=== PATIENT | male | born 1990 | race American Indian/Alaskan Native ===

== ENCOUNTER 2017-02-26 12:31 | Inpatient (IN) | payer OTHER ==
[2017-02-26] MEDS ORDERED: Pantoprazole 40 MG Vial IVPUSH ONE (13:26)
[2017-02-26] MEDS ORDERED: Sodium Chloride 0.9% 10 ML Syringe FLUSH PRN (13:26)
[2017-02-26] MEDS ORDERED: Sodium Chloride 0.9% 1,000 ML IV ONE (13:26)
[2017-02-26] MEDS ORDERED: Ondansetron 4 MG/2 ML SDV IVPUSH ONE (13:26)
--- NOTE | 2017-02-26 13:31 | EDM.PDOC ---
ED HPI GENERAL MEDICAL PROBLEM - General Chief Complaint: Gastrointestinal Problem Stated Complaint: BLOOD IN STOOL/R LEG PREV BROKEN AND BLEEDING Time Seen by Provider: 02/26/17 13:00 Source of Information: Reports: Patient History Limitations: Reports: No Limitations - History of Present Illness INITIAL COMMENTS - FREE TEXT/NARRATIVE: Patient is a 26-year-old male who presents to the ED complaining of blood in his stool. Patient states approximately 9 o'clock this morning while having a bowel movement he noticed bright red blood within the stool. Again this happened a second time at 11:00. Patient is mildly dizzy while ambulating with crutches to the ED. Patient states he has a history of chronic alcohol use with his last alcohol consumption this morning upon awakening consisting of 2 shots of whiskey. Patient has been through detox multiple times and has never had inpatient therapy. States with detox he has seizures and hallucinations. Normally patient drinks approximately 1/5 whiskey every night. Patient has a history of vomiting blood approximately 2 years ago. He never had additional testing obtained. Pain to lower abdomen described as a cramping sensation, persistent, with no radiation. He is mildly nauseated with no emesis. He also has a history of anxiety, hepatitis C, and hypertension. He does not recall what medications he is on for hypertension. Approximately one month ago patient suffered a serious fracture to his right ankle requiring surgery. Surgery was performed February 07, 2017 at [facility]. He was seen in the clinic yesterday by orthopedic surgeon for reevaluation. They were concerned of increased swelling. Patient had x-ray of the right ankle with no acute findings noted. Cast is still in place. He denies any shortness of breath, chest pain, history of DVT/PE, cough, fever/chills, or any additional complaints. Patient denies any recent bad or questionable food and out of country travel. Right Ankle Pain Score (Numeric/FACES): 6 - Related Data Allergies Allergy/AdvReac Type Severity Reaction Status Date / Time sea food Allergy Airway Uncoded 02/26/17 12:45 Tightness Home Meds: Home Meds Hydrocodone/Acetaminophen [Hydrocodon-Acetaminophen 5-325] 1 tab PO Q6H PRN 10/03 [History] Past Medical History Cardiovascular History: Reports: Hypertension Hematologic History: Reports: Other (See Below) Other Hematologic History: hepatits c - Past Surgical History GI Surgical History: Reports: Cholecystectomy Other Musculoskeletal Surgeries/Procedures:: L wrist surgery after suicide attempt, pt has numerous cut scars to L wrist Social & Family History - Tobacco Use Smoking Status *Q: Never Smoker Second Hand Smoke Exposure: No - Caffeine Use Caffeine Use: Reports: None - Alcohol Use Date of Last Drink: 02/26/17 Time of Last Drink: 06:00 - Recreational Drug Use Recreational Drug Use: No ED ROS GENERAL - Review of Systems Review Of Systems: See Below Constitutional: Reports: Malaise, Decreased Appetite. Denies: Fever, Chills HEENT: Reports: No Symptoms Respiratory: Reports: No Symptoms Cardiovascular: Reports: No Symptoms GI/Abdominal: Reports: Abdominal Pain, Bloody Stool, Diarrhea, Nausea. Denies: Constipation, Hematemesis, Vomiting : Reports: No Symptoms Musculoskeletal: Reports: Leg Pain (right s/p fracture (ankle/lower leg) requiring surgery) Skin: Reports: No Symptoms Neurological: Reports: Dizziness. Denies: Numbness, Tingling, Difficulty Walking (utilize crutches with no issues) ED EXAM, GI/ABD - Physical Exam Exam: See Below Exam Limited By: No Limitations General Appearance: Alert, WD/WN, No Apparent Distress Eyes: Bilateral: EOMI, Nystagmus (horizontal) Ears: Normal External Exam Nose: Normal Inspection Throat/Mouth: Normal Inspection, Normal Oropharynx, Normal Voice, No Airway Compromise Neck: Normal Inspection, Supple, Non-Tender. No: Lymphadenopathy (L), Lymphadenopathy (R) Respiratory/Chest: No Respiratory Distress, Lungs Clear, Normal Breath Sounds, No Accessory Muscle Use, Chest Non-Tender Cardiovascular: Normal Peripheral Pulses, No JVD, No Murmur, Tachycardia GI/Abdominal: Normal Bowel Sounds, Soft, No Organomegaly, No Distention, Other ( mild tenderness in suprapubic region) Back Exam: Normal Inspection Extremities: Other (past to the right lower leg. Toes are pink, warm, with no sensory or motor deficits noted.) Neurological: Alert, Oriented, CN II-XII Intact, Normal Cognition, No Motor/ Sensory Deficits Psychiatric: Normal Affect, Normal Mood Skin Exam: Warm, Dry, Intact, Normal Color, No Rash Course - Vital Signs Last Recorded V/S: Last Vital Signs Temp 98.4 F 02/26/17 20:10 Pulse 127 H 02/26/17 12:41 Resp 20 02/26/17 20:10 BP 136/74 02/26/17 21:07 Pulse Ox 96 02/26/17 20:10 - Orders/Labs/Meds Orders: Active Orders 24 hr Category Date Time Status Peripheral IV Care [RC] Q2H Care 02/26/17 13:27 Active PATIENT RETYPE [BBK] Stat Lab 02/26/17 14:06 Results TYPE AND SCREEN [BBK] Stat Lab 02/26/17 14:06 Results Sodium Chloride 0.9% [Saline Flush] Med 02/26/17 13:26 Active 10 ml FLUSH ASDIRECTED PRN Peripheral IV Insertion Adult [OM.PC] Stat Oth 02/26/17 13:26 Ordered Medication Orders Hydrocodone Bitart/Acetaminophen (Walford 325-5 Mg) 1 tab PO Q6H PRN PRN Reason: Pain Last Admin: 02/26/17 20:59 Dose: 1 tab Chlordiazepoxide HCl (Librium) 25 mg PO TID [facility] Last Admin: 02/26/17 20:59 Dose: 25 mg Clonidine HCl (Catapres) 0.1 mg PO Q12HR [facility] Last Admin: 02/26/17 21:07 Dose: Enoxaparin Sodium (Lovenox) 40 mg SUBCUT DAILY [facility] Hydromorphone HCl (Dilaudid) 1 mg IVPUSH Q6H PRN PRN Reason: Pain (moderate 4-6) Lactated Ringer's (Ringers, Lactated) 1,000 mls @ 150 mls/hr IV ASDIRECTED [facility] Last Admin: 02/26/17 21:18 Dose: 150 mls/hr Lorazepam (Ativan) 1 mg IVPUSH Q6H PRN PRN Reason: Anxiety Last Admin: 02/26/17 21:03 Dose: 1 mg Metoclopramide HCl (Reglan) 10 mg IVPUSH Q6H [facility] Last Admin: 02/26/17 20:58 Dose: 10 mg Ondansetron HCl (Zofran) 4 mg IVPUSH Q8H PRN PRN Reason: Nausea/Vomiting Pantoprazole Sodium (Protonix Iv) 40 mg IVPUSH Q12H [facility] Last Admin: 02/26/17 21:06 Dose: 40 mg Sodium Chloride (Saline Flush) 10 ml FLUSH ASDIRECTED PRN PRN Reason: Keep Vein Open Last Admin: 02/26/17 13:54 Dose: 10 ml Vitamin B Complex/Vit C/Folic Acid (Nephrocaps) 1 tab PO DAILY GISELE Labs: Laboratory Tests 02/26/17 02/26/17 02/26/17 Range/Units 13:45 13:45 14:06 WBC 4.64 (4.23-9.07) K/mm3 RBC 4.87 (4.63-6.08) M/mm3 Hgb 14.7 (13.7-17.5) gm/L Hct 44.3 (40.1-51.0) % MCV 91.0 (79.0-92.2) fl MCH 30.2 (25.7-32.2) pg MCHC 33.2 (32.2-35.5) g/dl RDW Std Deviation 50.1 H (35.1-43.9) fL Plt Count 399 H (163-337) K/mm3 MPV 10.2 (9.4-12.3) fl Neut % (Auto) 35.8 (34.0-67.9) % Lymph % (Auto) 53.9 H (21.8-53.1) % Lasalle % (Auto) 8.8 (5.3-12.2) % Eos % (Auto) 0.2 L (0.8-7.0) Baso % (Auto) 1.1 (0.1-1.2) % Neut # (Auto) 1.66 L (1.78-5.38) K/mm3 Lymph # (Auto) 2.50 (1.32-3.57) K/mm3 [place]alle # (Auto) 0.41 (0.30-0.82) K/mm3 Eos # (Auto) 0.01 L (0.04-0.54) K/mm3 Baso # (Auto) 0.05 (0.01-0.08) K/mm3 PT (8.0-13.0) SECONDS INR D-Dimer, Quantitative (0.19-0.59) mg/L Sodium (136-145) mEq/L Potassium (3.5-5.1) mEq/L Chloride (98-107) mEq/L Carbon Dioxide (21-32) mEq/L Anion Gap (5-15) BUN (7-18) mg/dL Creatinine (0.7-1.3) mg/dL Est Cr Clr Drug Dosing mL/min Estimated GFR (MDRD) (>60) mL/min BUN/Creatinine Ratio (14-18) Glucose (74-106) mg/dL Calcium (8.5-10.1) mg/dL Magnesium (1.8-2.4) mg/dl Total Bilirubin (0.2-1.0) mg/dL AST (15-37) U/L ALT (16-63) U/L Alkaline Phosphatase (46-116) U/L C-Reactive Protein (<1.0) mg/dL Total Protein (6.4-8.2) g/dl Albumin (3.4-5.0) g/dl Globulin gm/dL Albumin/Globulin Ratio (1-2) Lipase (73-393) U/L Urine Color Yellow (Yellow) Urine Appearance Clear (Clear) Urine pH 6.5 (5.0-8.0) Ur Specific Baker 1.010 (1.005-1.030) Urine Protein Trace H (Negative) Urine Glucose (UA) Negative (Negative) Urine Ketones Negative (Negative) Urine Occult Blood Negative (Negative) Urine Nitrite Negative (Negative) Urine Bilirubin Negative (Negative) Urine Urobilinogen 0.2 (0.2-1.0) Ur Leukocyte Esterase Negative (Negative) Urine RBC 0-5 (0-5) /hpf Urine WBC 0-5 (0-5) /hpf Ur Epithelial Cells Not Reportable Ur Squamous Epith Cells 0-5 (0-5) /hpf Urine Bacteria Few (FEW) /hpf Urine Mucus Few (FEW) /hpf Urine Opiates Screen Negative (NEGATIVE) Ur Buprenorphine Scrn Negative (NEGATIVE) Ur Oxycodone Screen Negative (NEGATIVE) Urine Methadone Screen Negative (NEGATIVE) Ur Propoxyphene Screen Negative (NEGATIVE) Ur Barbiturates Screen Negative (NEGATIVE) Ur Tricyclics Screen Negative (NEGATIVE) Ur Phencyclidine Scrn Negative (NEGATIVE) Ur Amphetamine Screen Negative (NEGATIVE) U Methamphetamines Scrn Negative (NEGATIVE) U Benzodiazepines Scrn Negative (NEGATIVE) U Cocaine Metab Screen Negative (NEGATIVE) U Marijuana (THC) Screen Negative (NEGATIVE) Ethyl Alcohol (0.00) gm% Blood Type Gel Antibody Screen 05/12/17 05/12/17 05/12/17 Range/Units 14:06 14:06 14:06 WBC (4.23-9.07) K/mm3 RBC (4.63-6.08) M/mm3 Hgb (13.7-17.5) gm/L Hct (40.1-51.0) % MCV (79.0-92.2) fl MCH (25.7-32.2) pg MCHC (32.2-35.5) g/dl RDW Std Deviation (35.1-43.9) fL Plt Count (163-337) K/mm3 MPV (9.4-12.3) fl Neut % (Auto) (34.0-67.9) % Lymph % (Auto) (21.8-53.1) % Lasalle % (Auto) (5.3-12.2) % Eos % (Auto) (0.8-7.0) Baso % (Auto) (0.1-1.2) % Neut # (Auto) (1.78-5.38) K/mm3 Lymph # (Auto) (1.32-3.57) K/mm3 Lasalle # (Auto) (0.30-0.82) K/mm3 Eos # (Auto) (0.04-0.54) K/mm3 Baso # (Auto) (0.01-0.08) K/mm3 PT 10.7 (8.0-13.0) SECONDS INR 0.98 D-Dimer, Quantitative (0.19-0.59) mg/L Sodium 148 H (136-145) mEq/L Potassium 3.6 (3.5-5.1) mEq/L Chloride 110 H (98-107) mEq/L Carbon Dioxide 23 (21-32) mEq/L Anion Gap 18.6 H (5-15) BUN 5 L (7-18) mg/dL Creatinine 1.1 (0.7-1.3) mg/dL Est Cr Clr Drug Dosing 120.39 mL/min Estimated GFR (MDRD) > 60 (>60) mL/min BUN/Creatinine Ratio 4.5 L (14-18) Glucose 139 H (74-106) mg/dL Calcium 8.4 L (8.5-10.1) mg/dL Magnesium (1.8-2.4) mg/dl Total Bilirubin 0.4 (0.2-1.0) mg/dL AST 244 H (15-37) U/L ALT 278 H (16-63) U/L Alkaline Phosphatase 136 H (46-116) U/L C-Reactive Protein < 0.2 (<1.0) mg/dL Total Protein 7.6 (6.4-8.2) g/dl Albumin 3.7 (3.4-5.0) g/dl Globulin 3.9 gm/dL Albumin/Globulin Ratio 1.0 (1-2) Lipase 88 (73-393) U/L Urine Color (Yellow) Urine Appearance (Clear) Urine pH (5.0-8.0) Ur Specific Baker (1.005-1.030) Urine Protein (Negative) Urine Glucose (UA) (Negative) Urine Ketones (Negative) Urine Occult Blood (Negative) Urine Nitrite (Negative) Urine Bilirubin (Negative) Urine Urobilinogen (0.2-1.0) Ur Leukocyte Esterase (Negative) Urine RBC (0-5) /hpf Urine WBC (0-5) /hpf Ur Epithelial Cells Ur Squamous Epith Cells (0-5) /hpf Urine Bacteria (FEW) /hpf Urine Mucus (FEW) /hpf Urine Opiates Screen (NEGATIVE) Ur Buprenorphine Scrn (NEGATIVE) Ur Oxycodone Screen (NEGATIVE) Urine Methadone Screen (NEGATIVE) Ur Propoxyphene Screen (NEGATIVE) Ur Barbiturates Screen (NEGATIVE) Ur Tricyclics Screen (NEGATIVE) Ur Phencyclidine Scrn (NEGATIVE) Ur Amphetamine Screen (NEGATIVE) U Methamphetamines Scrn (NEGATIVE) U Benzodiazepines Scrn (NEGATIVE) U Cocaine Metab Screen (NEGATIVE) U Marijuana (THC) Screen (NEGATIVE) Ethyl Alcohol (0.00) gm% Blood Type A POSITIVE Gel Antibody Screen Negative 02/26/17 02/26/17 02/26/17 Range/Units 14:06 14:06 14:06 WBC (4.23-9.07) K/mm3 RBC (4.63-6.08) M/mm3 Hgb (13.7-17.5) gm/L Hct (40.1-51.0) % MCV (79.0-92.2) fl MCH (25.7-32.2) pg MCHC (32.2-35.5) g/dl RDW Std Deviation (35.1-43.9) fL Plt Count (163-337) K/mm3 MPV (9.4-12.3) fl Neut % (Auto) (34.0-67.9) % Lymph % (Auto) (21.8-53.1) % Lasalle % (Auto) (5.3-12.2) % Eos % (Auto) (0.8-7.0) Baso % (Auto) (0.1-1.2) % Neut # (Auto) (1.78-5.38) K/mm3 Lymph # (Auto) (1.32-3.57) K/mm3 [place]alle # (Auto) (0.30-0.82) K/mm3 Eos # (Auto) (0.04-0.54) K/mm3 Baso # (Auto) (0.01-0.08) K/mm3 PT (8.0-13.0) SECONDS INR D-Dimer, Quantitative 2.66 H (0.19-0.59) mg/L Sodium (136-145) mEq/L Potassium (3.5-5.1) mEq/L Chloride (98-107) mEq/L Carbon Dioxide (21-32) mEq/L Anion Gap (5-15) BUN (7-18) mg/dL Creatinine (0.7-1.3) mg/dL Est Cr Clr Drug Dosing mL/min Estimated GFR (MDRD) (>60) mL/min BUN/Creatinine Ratio (14-18) Glucose (74-106) mg/dL Calcium (8.5-10.1) mg/dL Magnesium 1.9 (1.8-2.4) mg/dl Total Bilirubin (0.2-1.0) mg/dL AST (15-37) U/L ALT (16-63) U/L Alkaline Phosphatase (46-116) U/L C-Reactive Protein (<1.0) mg/dL Total Protein (6.4-8.2) g/dl Albumin (3.4-5.0) g/dl Globulin gm/dL Albumin/Globulin Ratio (1-2) Lipase (73-393) U/L Urine Color (Yellow) Urine Appearance (Clear) Urine pH (5.0-8.0) Ur Specific Baker (1.005-1.030) Urine Protein (Negative) Urine Glucose (UA) (Negative) Urine Ketones (Negative) Urine Occult Blood (Negative) Urine Nitrite (Negative) Urine Bilirubin (Negative) Urine Urobilinogen (0.2-1.0) Ur Leukocyte Esterase (Negative) Urine RBC (0-5) /hpf Urine WBC (0-5) /hpf Ur Epithelial Cells Ur Squamous Epith Cells (0-5) /hpf Urine Bacteria (FEW) /hpf Urine Mucus (FEW) /hpf Urine Opiates Screen (NEGATIVE) Ur Buprenorphine Scrn (NEGATIVE) Ur Oxycodone Screen (NEGATIVE) Urine Methadone Screen (NEGATIVE) Ur Propoxyphene Screen (NEGATIVE) Ur Barbiturates Screen (NEGATIVE) Ur Tricyclics Screen (NEGATIVE) Ur Phencyclidine Scrn (NEGATIVE) Ur Amphetamine Screen (NEGATIVE) U Methamphetamines Scrn (NEGATIVE) U Benzodiazepines Scrn (NEGATIVE) U Cocaine Metab Screen (NEGATIVE) U Marijuana (THC) Screen (NEGATIVE) Ethyl Alcohol 0.32 (0.00) gm% Blood Type Gel Antibody Screen Meds: Medications Generic Name Dose Route Start Last Admin Trade Name Freq PRN Reason Stop Dose Admin Hydrocodone Bitart/Acetaminophen 1 tab 02/26/17 20:43 02/26/17 20:59 Walford 325-5 Mg PO 1 tab Q6H PRN Administration Pain Chlordiazepoxide HCl 25 mg 02/26/17 21:00 02/26/17 20:59 Librium PO 25 mg TID GISELE Administration Clonidine HCl 0.1 mg 02/26/17 21:00 02/26/17 21:07 Catapres PO Not Given Q12HR [facility] Enoxaparin Sodium 40 mg 02/27/17 09:00 Lovenox SUBCUT DAILY GISELE Hydromorphone HCl 1 mg 02/26/17 20:44 Dilaudid IVPUSH Q6H PRN Pain (moderate 4-6) Lactated Ringer's 1,000 mls @ 150 mls/hr 02/26/17 20:30 02/26/17 21:18 Ringers, Lactated IV 150 mls/hr ASDIRECTED GISELE Administration Lorazepam 1 mg 02/26/17 20:28 02/26/17 21:03 Ativan IVPUSH 1 mg Q6H PRN Administration Anxiety Metoclopramide HCl 10 mg 02/26/17 21:00 02/26/17 20:58 Reglan IVPUSH 10 mg Q6H GISELE Administration Ondansetron HCl 4 mg 02/26/17 20:35 Zofran IVPUSH Q8H PRN Nausea/Vomiting Pantoprazole Sodium 40 mg 02/26/17 21:00 02/26/17 21:06 Protonix Iv IVPUSH 40 mg Q12H GISELE Administration Sodium Chloride 10 ml 02/26/17 13:26 02/26/17 13:54 Saline Flush FLUSH 10 ml ASDIRECTED PRN Administration Keep Vein Open Vitamin B Complex/Vit C/Folic Acid 1 tab 02/27/17 09:00 Nephrocaps PO DAILY GISELE Discontinued Medications Generic Name Dose Route Start Last Admin Trade Name Freq PRN Reason Stop Dose Admin Chlordiazepoxide HCl 25 mg 02/26/17 17:54 02/26/17 18:51 Librium PO 02/26/17 17:55 25 mg ONETIME ONE Administration Diatrizoate Meglum/Diatrizoate Sod 90 ml 02/26/17 14:48 02/26/17 15:04 Gastrografin 37% PO 02/26/17 14:49 90 ml ONETIME ONE Administration Sodium Chloride 1,000 mls @ 999 mls/hr 02/26/17 13:26 02/26/17 13:53 Normal Saline IV 02/26/17 14:26 999 mls/hr ONETIME ONE Administration Sodium Chloride 100 mls @ 60 mls/hr 02/26/17 15:00 02/26/17 15:04 Normal Saline IV 60 mls/hr ASDIRECTED GISELE Administration Sodium Chloride 2,000 mls @ 999 mls/hr 02/26/17 17:54 02/26/17 18:49 Normal Saline IV 02/26/17 19:54 999 mls/hr ONETIME ONE Administration Magnesium Sulfate 2 gm/ Premix 50 mls @ 25 mls/hr 02/26/17 20:33 02/26/17 21: 15 IV 02/26/17 22:32 25 mls/hr ONETIME ONE Administration Iopamidol 100 ml 02/26/17 14:48 02/26/17 15:04 Isovue-370 (76%) IVPUSH 02/26/17 14:49 100 ml ONETIME ONE Administration Iopamidol 50 ml 02/26/17 14:48 02/26/17 15:04 Isovue-370 (76%) IVPUSH 02/26/17 14:49 50 ml ONETIME ONE Administration Lorazepam 0.5 mg 02/26/17 14:00 02/26/17 15:18 Ativan IVPUSH 02/26/17 14:01 Not Given ONETIME ONE Lorazepam 1 mg 02/26/17 14:00 02/26/17 14:19 Ativan IVPUSH 02/26/17 14:01 1 mg ONETIME ONE Administration Lorazepam 1 mg 02/26/17 17:02 02/26/17 17:13 Ativan IVPUSH 02/26/17 17:03 1 mg ONETIME ONE Administration Metronidazole 500 mg 02/26/17 18:35 02/26/17 18:51 Flagyl PO 02/26/17 18:36 500 mg ONETIME ONE Administration Ondansetron HCl 4 mg 02/26/17 13:26 02/26/17 13:54 Zofran IVPUSH 02/26/17 13:27 4 mg ONETIME ONE Administration Pantoprazole Sodium 40 mg 02/26/17 13:26 02/26/17 13:53 Protonix Iv IVPUSH 02/26/17 13:27 40 mg ONETIME ONE Administration Propranolol HCl 80 mg 02/26/17 17:54 02/26/17 19:00 Inderal La PO 02/26/17 17:55 80 mg ONETIME ONE Administration Sodium Chloride 10 ml 02/26/17 14:48 02/26/17 15:04 Saline Flush FLUSH 02/26/17 14:49 10 ml ONETIME ONE Administration - Re-Assessments/Exams Free Text/Narrative Re-Assessment/Exam: Order peripheral IV with normal saline and a 9 mL per hour, Zofran 4 mg IVP, protonic 40 mg IVP. Initial labs and studies include: CBC, ETOH, chem 14, CRP, lipase, PT/INR, urine drug test, UA, EKG, type and screen, d-dimer, and CT abdomen/pelvis with oral and IV contrast. 1338 Patient has allergy to seafood. Discussing pretreatment with solumedrol and benadryl prior to contrast. Dr. Rodriguez states that is unproven and no pretreatment is required. Thus will proceed with no treatment per Dr. Rodriguez' s recommendations. 1350 EKG: Sinus tachycardia rate of 123, GA 140, QTc 472. No acute ST changes. S1Q3T3 present concerning for PE with recent lower leg ortho surgery and persistent swelling. Patient has no CP or SOB noted but is lightheaded. 02/26/17 14:01patient complains being anxious. Ordered Ativan 1 mg IVP. 02/26/17 14:47 d-dimer elevated at 2.26. Ordered CTA of the chest to rule out PE in addition to CT abdomen and pelvis. 02/26/17 17:00 CT angiogram impression: No findings of pulmonary embolism. CT abdomen pelvis: Impression questionable wall thickening within the right colon. Some of this may relate to lack of distention but difficult to exclude mild colitis. Other incidental findings. No acute is otherwise seen on CT study of the abdomen and pelvis. ordered venous duplex of the right lower extremity to evaluate for DVT. Patient has persistent swelling after surgery February 07, 2017. 02/26/17 17:03 Patient requesting more ativan. 1 mg IVP ordered. 02/26/17 17:55 Ordered Librium 25 mg p.o., Indural long-acting 80 mg p.o., and normal saline 2000 mL's (999 mls/hr). 02/26/17 18:38 Ordered flagyl 500mg PO. ultrasound impression: Slightly limited study due to the catheter due to the cast. No findings of deep venous thrombosis seen within the lower right lower extremity or within the left common femoral vein. Unclear etiology of elevated d-dimer. He has no swelling or pain to his left lower extremity. 1900 Reassessment, BP stable remains tachycardic. Patient requests to be admitted for detox and further management of mild colitis. He has had no BM's while in the E.D. 02/26/17 19:[address] Jordan environmental services coordinator hospitalists. She will see the patient in the E.D. 02/26/17 19:34 Dr. Jordan has accepted the patient. Requests patient be placed in ICU. Admissions orders completed. I have also ordered magnesium serum level. Departure - Departure Time of Disposition: 19:35 Disposition: Admitted As Inpatient 68 Condition: fair Clinical Impression: Alcohol abuse, Colitis, Tachycardia - Discharge Information - My Orders Last 24 Hours: My Active Orders 02/26/17 13:26 Sodium Chloride 0.9% [Saline Flush] 10 ml FLUSH ASDIRECTED PRN Peripheral IV Insertion Adult [OM.PC] Stat 02/26/17 13:27 Peripheral IV Care [RC] Q2H 02/26/17 14:06 PATIENT RETYPE [BBK] Stat TYPE AND SCREEN [BBK] Stat - Assessment/Plan Last 24 Hours: My Active Orders 02/26/17 13:26 Sodium Chloride 0.9% [Saline Flush] 10 ml FLUSH ASDIRECTED PRN Peripheral IV Insertion Adult [OM.PC] Stat 02/26/17 13:27 Peripheral IV Care [RC] Q2H 02/26/17 14:06 PATIENT RETYPE [BBK] Stat TYPE AND SCREEN [BBK] Stat
[2017-02-26] MEDS ORDERED: LORazepam 2 MG/ML MDV IVPUSH ONE ×3 (14:00→17:02)
[2017-02-26] MEDS ORDERED: Sodium Chloride 0.9% 10 ML Syringe FLUSH ONE (14:48)
[2017-02-26] MEDS ORDERED: Diatrizoate Meglumine/Diatrizoate Sodium 37% 120 ML Bottle PO ONE (14:48)
[2017-02-26] MEDS ORDERED: Iopamidol 755 Mg/ML 100 ML Bottle IVPUSH ONE (14:48)
[2017-02-26] MEDS ORDERED: Iopamidol 755 MG/ML 50 ML Bottle IVPUSH ONE (14:48)
[2017-02-26] MEDS ORDERED: Sodium Chloride 0.9% 100 ML IV SCH (15:00)
--- NOTE | 2017-02-26 15:38 | CT ---
CT abdomen and pelvis Technique: Multiple axial sections were obtained from above the dome of the diaphragm inferiorly through the pubic symphysis. Intravenous and oral contrast was utilized. Delayed images were also obtained through the bladder. Findings: Liver shows mild fatty infiltration. No focal abnormality is seen within the liver other than incidental fatty change near the ligamentum teres fissure. Spleen appears within normal limits. Adrenal glands show no nodule. Pancreas is within normal limits. Kidneys show symmetric contrast enhancement without hydronephrosis or mass. Gallbladder not seen compatible with previous cholecystectomy surgical clips being seen within the gallbladder bed. Aorta shows no aneurysmal dilatation. No retroperitoneal adenopathy or mesenteric abnormalities are seen. No pelvic mass or adenopathy is seen. Delayed images shows contrast within the distal ureters and within the bladder. Questionable wall wall thickening is seen within the right colon. Other portions of the colon appear within normal limits. No inflammatory change or free fluid is seen. Bone window settings were reviewed which appears within normal limits for the patient's age. Impression: 1. Questionable wall thickening within the right colon. Some of this may relate to lack of distention but difficult to exclude mild colitis. Please correlate with the patient's symptoms. 2. Other incidental findings. Nothing acute is otherwise seen on CT study of the abdomen and pelvis. Diagnostic code #3
--- NOTE | 2017-02-26 15:46 | CT ---
CT chest Technique: Multiple axial sections through the chest were obtained. Intravenous contrast was utilized. Study has been performed as a pulmonary angiogram protocol. Comparison: No previous chest CT, previous chest x-ray of 04/02/15. Findings: Pulmonary arteries are well-opacified. No filling defects are seen to indicate pulmonary embolism. Mediastinum and hilar regions appear within normal limits. No axillary adenopathy is seen. No pericardial thickening is seen. Heart size is normal. Small portion of the visualized upper abdominal structures shows low density near the ligamentum teres fissure within the liver which is felt compatible with incidental fat. Lungs shows minimal dependent atelectasis posteriorly. Lungs otherwise are clear. No pleural effusions or pneumothorax is seen. Bone window settings were reviewed which appear within normal limits for the patient's age. Impression: 1. No findings of pulmonary embolism. 2. Other portions of the CT study of the chest performed as a pulmonary angiogram protocol appear unremarkable. Diagnostic code #1
[2017-02-26] MEDS ORDERED: Sodium Chloride 0.9% 2,000 ML IV ONE (17:54)
[2017-02-26] MEDS ORDERED: Propranolol 80 MG Cap.ER PO ONE (17:54)
[2017-02-26] MEDS ORDERED: chlordiazePOXIDE 25 MG Cap PO ONE (17:54)
--- NOTE | 2017-02-26 18:29 | US ---
Right lower extremity deep venous ultrasound: Duplex and color flow imaging was obtained of the right common femoral, proximal greater saphenous, superficial femoral, popliteal, posterior tibial and peroneal veins. Cast is noted within the lower extremity. This causes limited augmentation and calf veins. Normal phasic flow, augmentation and compression is otherwise seen. Left common femoral vein is also patent. Impression: 1. Slightly limited study due to the calf due to cast. No findings of deep venous thrombosis is seen within the right lower extremity or within the left common femoral vein. Diagnostic code #1
[2017-02-26] MEDS ORDERED: metroNIDAZOLE 500 MG Tab PO ONE (18:35)
--- NOTE | 2017-02-26 20:21 | PCM.HP ---
H&P History of Present Illness - General Date of Service: 02/26/17 Admit Problem/Dx: Admission Diagnosis/Problem Admission Diagnosis/Problem Non-specific colitis Source of Information: Patient, Family, Provider History Limitations: Reports: No Limitations - History of Present Illness Initial Comments - Free Text/Narative: 26 year old PMH of substance abuse includes heavy alcohol ingestion. He reports blood while passing a stool twice. This was associated with nausea, no vomiting. Carmpy abdominal pain was also reported. He drinks up to a fifth of alcohol daily. ED staff stated that he wishes to undergo treatment, however the patient believes that he is being admitted for blood in his stool. The patient reported a history of alcohol related seizures, DTs/hallucinations and more than one attempt to stop alcohol and drug abuse. Recently he required surgical repair of a right ankle fracture. He has been prescribed Conesus 5-325 for pain. Onset of Symptoms: Reports: Sudden Symptom Onset Date: 02/26/17 Duration of Symptoms: Reports: Hour(s):, Getting Worse Location: Reports: Abdomen Severity: Moderate Improves with: Reports: None Worsens with: Reports: None Associated Symptoms: Reports: Nausea/Vomiting, Weakness Right Ankle Pain Score (Numeric/FACES): 6 - Related Data Allergies/Adverse Reactions: Allergies Allergy/AdvReac Type Severity Reaction Status Date / Time sea food Allergy Airway Uncoded 02/26/17 23:11 Tightness Home Medications: Home Meds Hydrocodone/Acetaminophen [Hydrocodon-Acetaminophen 5-325] 1 tab PO Q6H PRN 10/03 [History] Past Medical History Cardiovascular History: Reports: Hypertension Hematologic History: Reports: Other (See Below) Other Hematologic History: hepatits c - Past Surgical History GI Surgical History: Reports: Cholecystectomy Other Musculoskeletal Surgeries/Procedures:: L wrist surgery after suicide attempt, pt has numerous cut scars to L wrist Social & Family History - Tobacco Use Smoking Status *Q: Never Smoker Second Hand Smoke Exposure: No - Caffeine Use Caffeine Use: Reports: None - Alcohol Use Date of Last Drink: 02/26/17 Time of Last Drink: 06:00 - Recreational Drug Use Recreational Drug Use: No H&P Review of Systems - Review of Systems: Review Of Systems: See Below General: Reports: Malaise, Weakness HEENT: Reports: No Symptoms Pulmonary: Reports: No Symptoms Cardiovascular: Reports: No Symptoms Gastrointestinal: Reports: Abdominal Pain, Bloody Stool Genitourinary: Reports: No Symptoms Musculoskeletal: Reports: Leg Pain (right) Skin: Reports: No Symptoms Psychiatric: Reports: Anxiety Neurological: Reports: No Symptoms Hematologic/Lymphatic: Reports: No Symptoms Immunologic: Reports: No Symptoms Exam - Exam Exam: See Below - Vital Signs Vital Signs: Last Vital Signs Temp 36.9 C 02/26/17 12:41 Pulse 127 H 02/26/17 12:41 Resp 18 02/26/17 12:41 BP 155/92 H 02/26/17 12:41 Pulse Ox 97 02/26/17 12:41 Weight: 131.088 kg - Exam General: Alert, Oriented, Cooperative HEENT: EOMI, Nares Patent, Normal Nasal Septum, Pupils Equal, Pupils Reactive Neck: Supple, Trachea Midline Lungs: Normal Respiratory Effort Cardiovascular: Regular Rate, Tachycardia Abdomen: Normal Bowel Sounds, Soft (Male) Exam: Deferred Rectal (Males) Exam: Deferred Back Exam: Normal Inspection Extremities: Normal Pulses Skin: Warm, Other (multiple tattoos, scars) Neurological: Cranial Nerves Intact, Normal Speech Neuro Extensive - Mental Status: Alert, Oriented x3 Neuro Extensive - Motor, Sensory, Reflexes: CN II-XII Intact Psychiatric: Alert, Anxious - Patient Data Lab Results last 24 hrs: Laboratory Results - last 24 hr 02/26/17 Range/Units 20:00 Magnesium 1.5 L (1.8-2.4) mg/dl Result Diagrams: 02/27/17 04:16 02/27/17 04:16 *Q Meaningful Use (ADM) - VTE *Q VTE Criteria *Q: - Stroke *Q Stroke Criteria *Q: - AMI *Q AMI Criteria *Q: Problem List Initiated/Reviewed/Updated: Yes Orders Last 24hrs: Active Orders 24 hr Category Date Time Status Antiembolic Devices [RC] PER UNIT ROUTINE Care 02/26/17 20:18 Ordered Bedrest Bathroom Privileges [RC] ASDIRECTED Care 02/26/17 20:17 Ordered CIWAA Assessment [RC] ASDIRECTED Care 02/26/17 20:17 Ordered Vital Signs [RC] PER UNIT ROUTINE Care 02/26/17 20:17 Ordered BMP [BASIC METABOLIC PANEL,BMP] [CHEM] DAILY Lab 02/27/17 05:00 Ordered BMP [BASIC METABOLIC PANEL,BMP] [CHEM] DAILY Lab 02/28/17 05:00 Ordered BMP [BASIC METABOLIC PANEL,BMP] [CHEM] DAILY Lab 03/01/17 05:00 Ordered BMP [BASIC METABOLIC PANEL,BMP] [CHEM] DAILY Lab 03/02/17 05:00 Ordered CBC W/O DIFF,HEMOGRAM [HEME] MOTH@0700 Lab 03/01/17 07:00 Ordered CBC W/O DIFF,HEMOGRAM [HEME] MOTH@0700 Lab 03/04/17 07:00 Ordered CBC W/O DIFF,HEMOGRAM [HEME] MOTH@0700 Lab 03/08/17 07:00 Ordered CBC W/O DIFF,HEMOGRAM [HEME] MOTH@0700 Lab 03/11/17 07:00 Ordered CBC W/O DIFF,HEMOGRAM [HEME] MOTH@0700 Lab 03/15/17 07:00 Ordered CBC W/O DIFF,HEMOGRAM [HEME] MOTH@0700 Lab 03/18/17 07:00 Ordered CBC WITH AUTO DIFF [HEME] DAILY Lab 02/27/17 05:00 Ordered CBC WITH AUTO DIFF [HEME] DAILY Lab 02/28/17 05:00 Ordered CBC WITH AUTO DIFF [HEME] DAILY Lab 03/01/17 05:00 Ordered CBC WITH AUTO DIFF [HEME] DAILY Lab 03/02/17 05:00 Ordered CRP [C-REACTIVE PROTEIN] [CHEM] DAILY Lab 02/27/17 05:00 Ordered CRP [C-REACTIVE PROTEIN] [CHEM] DAILY Lab 02/28/17 05:00 Ordered CRP [C-REACTIVE PROTEIN] [CHEM] DAILY Lab 03/01/17 05:00 Ordered CRP [C-REACTIVE PROTEIN] [CHEM] DAILY Lab 03/02/17 05:00 Ordered Enoxaparin [Lovenox] Med 02/27/17 09:00 Ordered 40 mg SUBCUT DAILY Lactated Ringers @ 150 MLS/HR(1000ml Bag) Med 02/26/17 20:30 Ordered Lactated Ringers [Ringers, Lactated] 1,000 ml IV ASDIRECTED Pantoprazole [ProTONIX IV] Med 02/26/17 20:30 Ordered 40 mg IVPUSH Q12H KASSI Hose [Antiembolic Hose] [OM.PC] Routine Oth 02/26/17 20:18 Ordered Code Status [Resuscitation Status] Routine Resus Stat 02/26/17 20:18 Ordered Medication Orders Sodium Chloride (Normal Saline) 100 mls @ 60 mls/hr IV ASDIRECTED GISELE Last Admin: 02/26/17 15:04 Dose: 60 mls/hr Sodium Chloride (Saline Flush) 10 ml FLUSH ASDIRECTED PRN PRN Reason: Keep Vein Open Last Admin: 02/26/17 13:54 Dose: 10 ml Assessment/Plan Comment:: Impression: Painless bloody stool History of HCV Polysubstance abuse History of self mutilation, required surgical repair of wrist from attempted suicide Reported wants ETOH/Substance abuse consult but denied it in the ED Plan: IVF CIWA protocol Replace electrolytes SZ/Aspiration precautions Psych consult Substance abuse consult General surgery consult re: BPR if it persist, vern hemorrhoids query outpatient consult DVT/GI prophylaxis
[2017-02-26] MEDS ORDERED: Magnesium Sulfate/Water 2 GM in Premix Bag 1 BAG IV ONE (20:33)
[2017-02-26] MEDS ORDERED: Ondansetron 4 MG/2 ML SDV IVPUSH PRN (20:35)
[2017-02-26] MEDS ORDERED: Acetaminophen/HYDROcodone 325-5 MG Tab PO PRN (20:43)
[2017-02-26] MEDS ORDERED: HYDROmorphone 1 MG/ML Syringe IVPUSH PRN (20:44)
[2017-02-26] MEDS: Metoclopramide 10 MG/2 ML SDV IVPUSH SCH (20:58)
[2017-02-26] MEDS: chlordiazePOXIDE 25 MG Cap PO SCH (20:59)
[2017-02-26] MEDS: LORazepam 2 MG/ML MDV IVPUSH PRN (21:03)
[2017-02-26] MEDS: Pantoprazole 40 MG Vial IVPUSH SCH (21:06)
[2017-02-26] MEDS: cloNIDine 0.1 MG Tab PO SCH (21:07)
[2017-02-26] MEDS: Lactated Ringers 1,000 ML IV SCH (21:18)
[2017-02-27] MEDS: Metoclopramide 10 MG/2 ML SDV IVPUSH SCH ×2 (03:02→09:34)
[2017-02-27] MEDS: LORazepam 2 MG/ML MDV IVPUSH PRN (03:14)
[2017-02-27] MEDS: Lactated Ringers 1,000 ML IV SCH ×2 (04:04→10:50)
[2017-02-27] MEDS ORDERED: Sodium Chloride 0.9% 10 ML Syringe FLUSH PRN (08:07)
[2017-02-27] MEDS: cloNIDine 0.1 MG Tab PO SCH (08:29)
[2017-02-27] MEDS ORDERED: Biotin/Folic Acid/Vitamin C/Vitamin B Complex Tab PO SCH (09:00)
[2017-02-27] MEDS ORDERED: Enoxaparin 40 MG/0.4 ML Syringe SUBCUT SCH (09:00)
[2017-02-27] MEDS: chlordiazePOXIDE 25 MG Cap PO SCH (09:34)
[2017-02-27] MEDS: Pantoprazole 40 MG Vial IVPUSH SCH (09:34)
[2017-02-27] MEDS ORDERED: Magnesium Sulfate/Water 2 GM in Premix Bag 1 BAG IV ONE (11:07)
[2017-02-27] MEDS ORDERED: Potassium Chloride 10% 20 MEQ/15 ML Soln 30 ML UD Cup PO ONE (11:08)
[2017-02-27 12:19] VITALS: BP 141/78
--- NOTE | 2017-02-27 12:21 | PCM.PN ---
- General Info Date of Service: 02/27/17 - Patient Data Vitals - most recent: Last Vital Signs Temp 36.3 C 02/27/17 12:00 Pulse 74 02/27/17 12:00 Resp 18 02/27/17 12:00 BP 141/78 H 02/27/17 12:00 Pulse Ox 98 02/27/17 12:00 Weight - most recent: 131.088 kg I&O - last 24 hours: Intake & Output 02/26/17 02/27/17 02/27/17 22:59 06:59 14:59 Intake Total 300 2450 1000 Output Total 400 350 500 Balance -100 2100 500 Lab Results last 24 hrs: Laboratory Results - last 24 hr 02/26/17 02/27/17 02/27/17 Range/Units 20:00 04:16 04:16 WBC 5.08 (4.23-9.07) K/mm3 RBC 4.24 L (4.63-6.08) M/mm3 Hgb 12.7 L (13.7-17.5) gm/L Hct 39.4 L (40.1-51.0) % MCV 92.9 H (79.0-92.2) fl MCH 30.0 (25.7-32.2) pg MCHC 32.2 (32.2-35.5) g/dl RDW Std Deviation 50.8 H (35.1-43.9) fL Plt Count 309 (163-337) K/mm3 MPV 10.7 (9.4-12.3) fl Neut % (Auto) 45.4 (34.0-67.9) % Lymph % (Auto) 44.7 (21.8-53.1) % [place] % (Auto) 8.1 (5.3-12.2) % Eos % (Auto) 1.2 (0.8-7.0) Baso % (Auto) 0.6 (0.1-1.2) % Neut # (Auto) 2.31 (1.78-5.38) K/mm3 Lymph # (Auto) 2.27 (1.32-3.57) K/mm3 [place] # (Auto) 0.41 (0.30-0.82) K/mm3 Eos # (Auto) 0.06 (0.04-0.54) K/mm3 Baso # (Auto) 0.03 (0.01-0.08) K/mm3 Sodium 143 (136-145) mEq/L Potassium 3.4 L (3.5-5.1) mEq/L Chloride 108 H (98-107) mEq/L Carbon Dioxide 24 (21-32) mEq/L Anion Gap 14.4 (5-15) BUN 5 L (7-18) mg/dL Creatinine 1.2 (0.7-1.3) mg/dL Est Cr Clr Drug Dosing 110.36 mL/min Estimated GFR (MDRD) > 60 (>60) mL/min BUN/Creatinine Ratio 4.2 L (14-18) Glucose 95 (74-106) mg/dL Calcium 8.1 L (8.5-10.1) mg/dL Magnesium 1.5 L 1.8 (1.8-2.4) mg/dl C-Reactive Protein < 0.2 (<1.0) mg/dL Med Orders - Current: Current Medications Hydrocodone Bitart/Acetaminophen ([place] 325-5 Mg) 1 tab PO Q6H PRN PRN Reason: Pain Last Admin: 02/26/17 20:59 Dose: 1 tab Chlordiazepoxide HCl (Librium) 25 mg PO TID [facility] Last Admin: 02/27/17 09:34 Dose: 25 mg Clonidine HCl (Catapres) 0.1 mg PO Q12HR [facility] Last Admin: 02/27/17 08:29 Dose: Not Given Enoxaparin Sodium (Lovenox) 40 mg SUBCUT DAILY [facility] Last Admin: 02/27/17 08:29 Dose: Not Given Fluoxetine HCl (Prozac) 20 mg PO DAILY [facility] Hydromorphone HCl (Dilaudid) 1 mg IVPUSH Q6H PRN PRN Reason: Pain (moderate 4-6) Lactated Ringer's (Ringers, Lactated) 1,000 mls @ 150 mls/hr IV ASDIRECTED [facility] Last Admin: 02/27/17 10:50 Dose: 150 mls/hr Magnesium Sulfate 2 gm/ Premix 50 mls @ 25 mls/hr IV ONETIME ONE Stop: 02/27/17 13:06 Lorazepam (Ativan) 1 mg IVPUSH Q6H PRN PRN Reason: Anxiety Last Admin: 02/27/17 03:14 Dose: 1 mg Metoclopramide HCl (Reglan) 10 mg IVPUSH Q6H [facility] Last Admin: 02/27/17 09:34 Dose: 10 mg Ondansetron HCl (Zofran) 4 mg IVPUSH Q8H PRN PRN Reason: Nausea/Vomiting Pantoprazole Sodium (Protonix Iv) 40 mg IVPUSH Q12H [facility] Last Admin: 02/27/17 09:34 Dose: 40 mg Sodium Chloride (Saline Flush) 10 ml FLUSH ASDIRECTED PRN PRN Reason: Keep Vein Open Vitamin B Complex/Vit C/Folic Acid (Nephrocaps) 1 tab PO DAILY [facility] Last Admin: 02/27/17 09:35 Dose: 1 tab Discontinued Medications Chlordiazepoxide HCl (Librium) 25 mg PO ONETIME ONE Stop: 02/26/17 17:55 Last Admin: 02/26/17 18:51 Dose: 25 mg Diatrizoate Meglum/Diatrizoate Sod (Gastrografin 37%) 90 ml PO ONETIME ONE Stop: 02/26/17 14:49 Last Admin: 02/26/17 15:04 Dose: 90 ml Sodium Chloride (Normal Saline) 1,000 mls @ 999 mls/hr IV ONETIME ONE Stop: 02/26/17 14:26 Last Admin: 02/26/17 13:53 Dose: 999 mls/hr Sodium Chloride (Normal Saline) 100 mls @ 60 mls/hr IV ASDIRECTED [facility] Last Admin: 02/26/17 15:04 Dose: 60 mls/hr Sodium Chloride (Normal Saline) 2,000 mls @ 999 mls/hr IV ONETIME ONE Stop: 02/26/17 19:54 Last Admin: 02/26/17 18:49 Dose: 999 mls/hr Magnesium Sulfate 2 gm/ Premix 50 mls @ 25 mls/hr IV ONETIME ONE Stop: 02/26/17 22:32 Last Admin: 02/26/17 21:15 Dose: 25 mls/hr Iopamidol (Isovue-370 (76%)) 100 ml IVPUSH ONETIME ONE Stop: 02/26/17 14:49 Last Admin: 02/26/17 15:04 Dose: 100 ml Iopamidol (Isovue-370 (76%)) 50 ml IVPUSH ONETIME ONE Stop: 02/26/17 14:49 Last Admin: 02/26/17 15:04 Dose: 50 ml Lorazepam (Ativan) 0.5 mg IVPUSH ONETIME ONE Stop: 02/26/17 14:01 Last Admin: 02/26/17 15:18 Dose: Not Given Lorazepam (Ativan) 1 mg IVPUSH ONETIME ONE Stop: 02/26/17 14:01 Last Admin: 02/26/17 14:19 Dose: 1 mg Lorazepam (Ativan) 1 mg IVPUSH ONETIME ONE Stop: 02/26/17 17:03 Last Admin: 02/26/17 17:13 Dose: 1 mg Metronidazole (Flagyl) 500 mg PO ONETIME ONE Stop: 02/26/17 18:36 Last Admin: 02/26/17 18:51 Dose: 500 mg Ondansetron HCl (Zofran) 4 mg IVPUSH ONETIME ONE Stop: 02/26/17 13:27 Last Admin: 02/26/17 13:54 Dose: 4 mg Pantoprazole Sodium (Protonix Iv) 40 mg IVPUSH ONETIME ONE Stop: 02/26/17 13:27 Last Admin: 02/26/17 13:53 Dose: 40 mg Potassium Chloride (Potassium Chloride) 40 meq PO ONETIME ONE Stop: 02/27/17 11:09 Propranolol HCl (Inderal La) 80 mg PO ONETIME ONE Stop: 02/26/17 17:55 Last Admin: 02/26/17 19:00 Dose: 80 mg Sodium Chloride (Saline Flush) 10 ml FLUSH ASDIRECTED PRN PRN Reason: Keep Vein Open Last Admin: 02/26/17 13:54 Dose: 10 ml Sodium Chloride (Saline Flush) 10 ml FLUSH ONETIME ONE Stop: 02/26/17 14:49 Last Admin: 02/26/17 15:04 Dose: 10 ml - My Orders Last 24 Hours: My Active Orders 02/26/17 20:17 Bedrest Bathroom Privileges [RC] ASDIRECTED CIWAA Assessment [RC] Q1H Vital Signs [RC] Q4H 02/26/17 20:18 Antiembolic Devices [RC] 1000,2200 KASSI Hose [Antiembolic Hose] [OM.PC] Routine Code Status [Resuscitation Status] Routine 02/26/17 20:25 Aspiration Precautions [RC] ASDIRECTED 02/26/17 20:28 LORazepam [Ativan] 1 mg IVPUSH Q6H PRN 02/26/17 20:30 Lactated Ringers [Ringers, Lactated] 1,000 ml IV ASDIRECTED 02/26/17 20:35 Ondansetron [Zofran] 4 mg IVPUSH Q8H PRN 02/26/17 20:43 Acetaminophen/HYDROcodone [[place] 325-5 MG] 1 tab PO Q6H PRN 02/26/17 20:44 HYDROmorphone [Dilaudid] 1 mg IVPUSH Q6H PRN 02/26/17 21:00 Metoclopramide [Reglan] 10 mg IVPUSH Q6H Pantoprazole [ProTONIX IV] 40 mg IVPUSH Q12H chlordiazePOXIDE [Librium] 25 mg PO TID cloNIDine [Catapres] 0.1 mg PO Q12HR 02/26/17 Dinner Clear Liquid Diet [DIET] 02/27/17 08:07 Sodium Chloride 0.9% [Saline Flush] 10 ml FLUSH ASDIRECTED PRN 02/27/17 09:00 Biotin/FA/Vit C/Vit B Complex [Nephrocaps] 1 tab PO DAILY Enoxaparin [Lovenox] 40 mg SUBCUT DAILY 02/27/17 10:00 Consult to Physician [CONS] Routine 02/27/17 11:07 Magnesium Sulfate/Water [Magnesium Sulfate 2 GM in Water 50 ML] 2 gm Premix Bag 1 bag IV ONETIME 02/27/17 13:00 Consult for Substance Abuse [CONS] Routine 02/28/17 05:00 BMP [BASIC METABOLIC PANEL,BMP] [CHEM] DAILY CBC WITH AUTO DIFF [HEME] DAILY CRP [C-REACTIVE PROTEIN] [CHEM] DAILY MAGNESIUM [CHEM] DAILY 03/01/17 05:00 BMP [BASIC METABOLIC PANEL,BMP] [CHEM] DAILY CBC WITH AUTO DIFF [HEME] DAILY CRP [C-REACTIVE PROTEIN] [CHEM] DAILY MAGNESIUM [CHEM] DAILY 03/02/17 05:00 BMP [BASIC METABOLIC PANEL,BMP] [CHEM] DAILY CBC WITH AUTO DIFF [HEME] DAILY CRP [C-REACTIVE PROTEIN] [CHEM] DAILY MAGNESIUM [CHEM] DAILY - Plan Plan:: Impression: Painless bloody stool History of HCV Polysubstance abuse History of self mutilation, required surgical repair of wrist from attempted suicide Reported wants ETOH/Substance abuse consult but denied it in the ED Plan: IVF CIWA protocol Replace electrolytes SZ/Aspiration precautions Psych consult Substance abuse consult General surgery consult re: BPR if it persist, vern hemorrhoids query outpatient consult DVT/GI prophylaxis
[2017-02-27] MEDS ORDERED: FLUoxetine 20 MG Cap PO SCH (12:30)
--- NOTE | 2017-02-27 13:19 | PCM.DCSUM1 ---
Discharge Summary - Hospital Course Free Text/Narrative:: 26 year old male who reported blood in stool twice in the ED, has had no additional episodes of bleeding. He was admitted for possible GI evaluation as well as poly-substance abuse. He had a consult by Dr Hweitt, Prozac 20 mg has been prescribed. He recommended pastoral care as well as AA; the patient declined both services. He however has been provided a referral for his blood in the stool, appt with Dr Les Murillo should be pursued. He has been encouraged to also follow instructions for substance abuse counselling and/or AA. he reported to Dr Hewitt that he has been accepted to a program in [place] for substance abuse, that remains unproven. Primary Dx Abdominal pain with blood per rectum, unspecified Alcohol dependence/HANSEL 0.32 on admission Poly-substance abuse HCV Condition stable Activity As tolerated Restrictions NO DRUGS or ALCOHOL Prescriptions Home meds Prozac 20 mg daily. Follow up Gen surg Dr Les Murillo, TBA Substance Abuse, TBA AA, TBA INSTRUCTIONS DO NOT DRINK OR TAKE DRUGS WHEN DRIVING - Discharge Data Discharge Date: 02/27/17 Discharge Disposition: Home, Self-Care 01 Condition: Good - Patient Summary/Data Consults: Consultations 02/27/17 10:00 Consult to Physician [CONS] Routine 02/27/17 12:05 Consult to Spiritual Care [CONS] Routine 02/27/17 13:00 Consult for Substance Abuse [CONS] Routine - Patient Instructions Diet: Usual Diet as Tolerated Activity: As Tolerated Driving: May Drive Today (Avoid alcohol) Showering/Bathing: May Shower Wound/Incision Care: Keep Operative Site/Wound Site Clean and Dry (right leg) Notify Provider of: Fever, Increased Pain, Nausea and/or Vomiting - Discharge Plan Prescriptions/Med Rec: FLUoxetine [PROzac] 20 mg PO DAILY #30 cap Home Medications: Home Meds Hydrocodone/Acetaminophen [Hydrocodon-Acetaminophen 5-325] 1 tab PO Q6H PRN 10/03 [History] FLUoxetine [PROzac] 20 mg PO DAILY #30 cap 02/27/17 [Rx] Forms: ED Department Discharge Referrals: [facility] [Outside] (Follow up with [facility] for outpatient therapy regarding alcohol abuse and depression) Les Murillo MD [Physician] - (follow up with surgery regarding history of rectal bleeding) PCP,Not In Area [Primary Care Provider] - - Discharge Summary/Plan Comment DC Time >30 min.: No - General Info Date of Service: 02/26/17 Functional Status: Reports: tolerating diet, ambulating, urinating - Review of Systems General: Reports: No Symptoms HEENT: Reports: no symptoms Pulmonary: Reports: no symptoms Cardiovascular: Reports: No Symptoms Gastrointestinal: Reports: No symptoms Genitourinary: Reports: no symptoms Musculoskeletal: Reports: no symptoms Skin: Reports: no symptoms Neurological: Reports: No Symptoms Psychiatric: Reports: no symptoms - Patient Data Vitals - Most Recent: Last Vital Signs Temp 36.3 C 02/27/17 12:00 Pulse 74 02/27/17 12:00 Resp 18 02/27/17 12:00 BP 141/78 H 02/27/17 12:00 Pulse Ox 98 02/27/17 12:00 Weight - Most Recent: 131.088 kg I&O - Last 24 hours: Intake & Output 02/26/17 02/27/17 02/27/17 22:59 06:59 14:59 Intake Total 300 2450 1360 Output Total 400 350 500 Balance -100 2100 860 Lab Results - Last 24 hrs: Laboratory Results - last 24 hr 02/26/17 02/27/17 02/27/17 Range/Units 20:00 04:16 04:16 WBC 5.08 (4.23-9.07) K/mm3 RBC 4.24 L (4.63-6.08) M/mm3 Hgb 12.7 L (13.7-17.5) gm/L Hct 39.4 L (40.1-51.0) % MCV 92.9 H (79.0-92.2) fl MCH 30.0 (25.7-32.2) pg MCHC 32.2 (32.2-35.5) g/dl RDW Std Deviation 50.8 H (35.1-43.9) fL Plt Count 309 (163-337) K/mm3 MPV 10.7 (9.4-12.3) fl Neut % (Auto) 45.4 (34.0-67.9) % Lymph % (Auto) 44.7 (21.8-53.1) % [place] % (Auto) 8.1 (5.3-12.2) % Eos % (Auto) 1.2 (0.8-7.0) Baso % (Auto) 0.6 (0.1-1.2) % Neut # (Auto) 2.31 (1.78-5.38) K/mm3 Lymph # (Auto) 2.27 (1.32-3.57) K/mm3 [place] # (Auto) 0.41 (0.30-0.82) K/mm3 Eos # (Auto) 0.06 (0.04-0.54) K/mm3 Baso # (Auto) 0.03 (0.01-0.08) K/mm3 Sodium 143 (136-145) mEq/L Potassium 3.4 L (3.5-5.1) mEq/L Chloride 108 H (98-107) mEq/L Carbon Dioxide 24 (21-32) mEq/L Anion Gap 14.4 (5-15) BUN 5 L (7-18) mg/dL Creatinine 1.2 (0.7-1.3) mg/dL Est Cr Clr Drug Dosing 110.36 mL/min Estimated GFR (MDRD) > 60 (>60) mL/min BUN/Creatinine Ratio 4.2 L (14-18) Glucose 95 (74-106) mg/dL Calcium 8.1 L (8.5-10.1) mg/dL Magnesium 1.5 L 1.8 (1.8-2.4) mg/dl C-Reactive Protein < 0.2 (<1.0) mg/dL Med Orders - Current: Current Medications Hydrocodone Bitart/Acetaminophen ([place] 325-5 Mg) 1 tab PO Q6H PRN PRN Reason: Pain Last Admin: 02/26/17 20:59 Dose: 1 tab Chlordiazepoxide HCl (Librium) 25 mg PO TID [facility] Last Admin: 02/27/17 09:34 Dose: 25 mg Clonidine HCl (Catapres) 0.1 mg PO Q12HR [facility] Last Admin: 02/27/17 08:29 Dose: Not Given Enoxaparin Sodium (Lovenox) 40 mg SUBCUT DAILY [facility] Last Admin: 02/27/17 08:29 Dose: Not Given Fluoxetine HCl (Prozac) 20 mg PO DAILY [facility] Last Admin: 02/27/17 12:43 Dose: 20 mg Hydromorphone HCl (Dilaudid) 1 mg IVPUSH Q6H PRN PRN Reason: Pain (moderate 4-6) Lactated Ringer's (Ringers, Lactated) 1,000 mls @ 150 mls/hr IV ASDIRECTED [facility] Last Admin: 02/27/17 10:50 Dose: 150 mls/hr Lorazepam (Ativan) 1 mg IVPUSH Q6H PRN PRN Reason: Anxiety Last Admin: 02/27/17 03:14 Dose: 1 mg Metoclopramide HCl (Reglan) 10 mg IVPUSH Q6H [facility] Last Admin: 02/27/17 09:34 Dose: 10 mg Ondansetron HCl (Zofran) 4 mg IVPUSH Q8H PRN PRN Reason: Nausea/Vomiting Pantoprazole Sodium (Protonix Iv) 40 mg IVPUSH Q12H [facility] Last Admin: 02/27/17 09:34 Dose: 40 mg Sodium Chloride (Saline Flush) 10 ml FLUSH ASDIRECTED PRN PRN Reason: Keep Vein Open Vitamin B Complex/Vit C/Folic Acid (Nephrocaps) 1 tab PO DAILY [facility] Last Admin: 02/27/17 09:35 Dose: 1 tab Discontinued Medications Chlordiazepoxide HCl (Librium) 25 mg PO ONETIME ONE Stop: 02/26/17 17:55 Last Admin: 02/26/17 18:51 Dose: 25 mg Diatrizoate Meglum/Diatrizoate Sod (Gastrografin 37%) 90 ml PO ONETIME ONE Stop: 02/26/17 14:49 Last Admin: 02/26/17 15:04 Dose: 90 ml Sodium Chloride (Normal Saline) 1,000 mls @ 999 mls/hr IV ONETIME ONE Stop: 02/26/17 14:26 Last Admin: 02/26/17 13:53 Dose: 999 mls/hr Sodium Chloride (Normal Saline) 100 mls @ 60 mls/hr IV ASDIRECTED [facility] Last Admin: 02/26/17 15:04 Dose: 60 mls/hr Sodium Chloride (Normal Saline) 2,000 mls @ 999 mls/hr IV ONETIME ONE Stop: 02/26/17 19:54 Last Admin: 02/26/17 18:49 Dose: 999 mls/hr Magnesium Sulfate 2 gm/ Premix 50 mls @ 25 mls/hr IV ONETIME ONE Stop: 02/26/17 22:32 Last Admin: 02/26/17 21:15 Dose: 25 mls/hr Magnesium Sulfate 2 gm/ Premix 50 mls @ 25 mls/hr IV ONETIME ONE Stop: 02/27/17 13:06 Last Admin: 02/27/17 12:43 Dose: 25 mls/hr Iopamidol (Isovue-370 (76%)) 100 ml IVPUSH ONETIME ONE Stop: 02/26/17 14:49 Last Admin: 02/26/17 15:04 Dose: 100 ml Iopamidol (Isovue-370 (76%)) 50 ml IVPUSH ONETIME ONE Stop: 02/26/17 14:49 Last Admin: 02/26/17 15:04 Dose: 50 ml Lorazepam (Ativan) 0.5 mg IVPUSH ONETIME ONE Stop: 02/26/17 14:01 Last Admin: 02/26/17 15:18 Dose: Not Given Lorazepam (Ativan) 1 mg IVPUSH ONETIME ONE Stop: 02/26/17 14:01 Last Admin: 02/26/17 14:19 Dose: 1 mg Lorazepam (Ativan) 1 mg IVPUSH ONETIME ONE Stop: 02/26/17 17:03 Last Admin: 02/26/17 17:13 Dose: 1 mg Metronidazole (Flagyl) 500 mg PO ONETIME ONE Stop: 02/26/17 18:36 Last Admin: 02/26/17 18:51 Dose: 500 mg Ondansetron HCl (Zofran) 4 mg IVPUSH ONETIME ONE Stop: 02/26/17 13:27 Last Admin: 02/26/17 13:54 Dose: 4 mg Pantoprazole Sodium (Protonix Iv) 40 mg IVPUSH ONETIME ONE Stop: 02/26/17 13:27 Last Admin: 02/26/17 13:53 Dose: 40 mg Potassium Chloride (Potassium Chloride) 40 meq PO ONETIME ONE Stop: 02/27/17 11:09 Last Admin: 02/27/17 12:43 Dose: 40 meq Propranolol HCl (Inderal La) 80 mg PO ONETIME ONE Stop: 02/26/17 17:55 Last Admin: 02/26/17 19:00 Dose: 80 mg Sodium Chloride (Saline Flush) 10 ml FLUSH ASDIRECTED PRN PRN Reason: Keep Vein Open Last Admin: 02/26/17 13:54 Dose: 10 ml Sodium Chloride (Saline Flush) 10 ml FLUSH ONETIME ONE Stop: 02/26/17 14:49 Last Admin: 02/26/17 15:04 Dose: 10 ml - Exam Quality Assessment: Reports: DVT prophylaxis General: Reports: alert, oriented, cooperative, no acute distress HEENT: Reports: Pupils equal, Pupils reactive, EOMI Neck: Reports: supple, trachea midline Lungs: Reports: Normal respiratory effort Cardiovascular: Reports: Regular Rate, Regular Rhythm Abdomen: Reports: bowel sounds present, soft, no tenderness, no distension (Male) Exam: Deferred Rectal (Males) Exam: Deferred Back Exam: Reports: Normal Inspection Extremities: Reports: normal pulses Skin: Reports: warm, other (tattoos) Neurological: Reports: no new focal deficit, normal gait, normal speech Psy/Mental Status: Reports: alert, normal affect, normal mood *Q Meaningful Use (DIS) - VTE *Q VTE Criteria *Q: - Stroke *Q Stroke Criteria *Q: - AMI *Q AMI Criteria *Q:
--- NOTE | 2017-02-27 18:06 | CONS ---
CONSULTING PHYSICIAN: Jasper Hewitt MD DATE OF CONSULTATION: 02/27/2017 IDENTIFICATION: The patient is a 26-year-old male, who is admitted to the MICU at [facility] in [place], [place] on 02/26/2017 secondary to BAL of 0.32 and concerns about liver dysfunction and bloody stools in the face of severe alcohol use. CHIEF COMPLAINT: "I was defecating blood." HISTORY OF PRESENT ILLNESS: The patient is a 26-year-old male who reports that he has been drinking up to "1 L a day" of hard liquor. He states that recently he has been trying to cut back and stop drinking altogether and he states that he "only had a few beers and 2 or 3 shots" of hard liquor and then he began feeling sick and he noticed blood in his stool. He came in, was assessed in emergency room, and subsequently admitted for possible symptoms of withdrawal and to further work up the cause of his bloody stool. The patient states that he has been struggling with depression and poor sleep. He states that he drinks to help deal with his depression "and lonely feelings." He states he wants to stop drinking, however, because "my liver can't take it anymore." He states that he was able to stop drinking for about 6 months in 2016 and he felt much better and he thought his quality of life was greatly improved. He did this on his own. He states that he was given some medication by Dr. Matson at [facility], but he is not sure what the medications are. He states that the medications have helped noting "I am depressed, but I don't want off myself." Evidently, he had been more depressed. He denies any suicidal or homicidal at this point in time. He denies any psychotic, delusional, or paranoid symptoms. He is planning to go to treatment in [place] but he recently had broken ankle and a fractured tibia or fibula. He is waiting for these bones to heal because "they won't take me until my legs completely healed up" and so far as is his treatment. He states when he is medically stabilized, he would like to go back home to [place], [place] where he lives because "when I am at home, I don't do anything, I don't drink." He is not reporting any other illicit substance use complicating his clinical picture at this point in time. He states that he is open to trying something for his depression if that is possible and he will talk with his family to find out what medications he is currently prescribed and after he does that he reports that he is taking also clonidine and trazodone for sleep, but he is not knowing the dose of the trazodone. MEDICATIONS: At the time of presentation. 1. Trazodone, unknown dose. 2. Clonidine 0.1 mg at bedtime, both of these are medications he has taken back in the community since being on the unit. 3. Ativan p.r.n. 4. Librium 25 mg t.i.d. 5. Thiamine supplementation. 6. Folic acid supplementation. 7. Protonix. 8. He states also he has taken [place] p.r.n. ,which is a home med for his pain from his fractured bones. ALLERGIES: The patient is allergic to sea food. PAST MEDICAL HISTORY: 1. Status post broken right ankle and fracture of the lower leg. 2. Bloody stool of unknown etiology. 3. The patient's staff is reporting that he has a remote history of withdrawal seizure history in the past. REVIEW OF SYSTEMS: Aside from musculoskeletal, GI, and neuro, all other major organ systems are negative at this point in time for acute difficulties and complications. FAMILY PSYCHIATRIC AND CD HISTORY: The patient reports father has a history of alcoholism. PAST PSYCHIATRIC AND CD HISTORY: The patient reports one psychiatric hospitalization in 2008 after a suicide attempt by the patient attempting to cut his wrist in the face of severe alcohol intoxication. This is his only suicide attempt. Denies any self injurious behaviors. Denies any chemical dependency treatments in the past. He began using alcohol at 17 years of age. His longest sobriety since became a problem form was 6 months in 2016. He has had past detox admissions. He reports a DWI x1 in 2011. PAST PSYCHIATRIC MEDICATION HISTORY: Besides the trazodone and clonidine is negative, the patient denies any previous self-injurious behavior history. Reports no eating disorder history. PAST PSYCHIATRIC DIAGNOSIS: Includes depression and anxiety. He reports he did have a DWI back in 2011. He has had past detox admissions. His primary MD is Dr. Matson out of [place], [place]. SOCIAL HISTORY: The patient was born in [place], [place]; raised in [place], [place]. He is the 5th of 5 siblings. His biological parents when the patient was 5 years of age. His father is , belonged to the [employer]. His mother is . He stayed with his mom after divorce. He did not really know his father growing up. [place] a [place] charge [place] The patient's hospital education is some college courses at [employer]. 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 He has never been , not involved in any current relationships. He has 4 children by 3 different women. He lives in [facility] when he is not in the hospital. Denies any prior service or current legal difficulties. He is raised Yazidism. He enjoys playing basketball and walking in the hills. MENTAL STATUS EXAM: The patient is a 26-year-old male, on his father's side, on his mother's side, in no apparent distress. Speech is of regular rate and rhythm. The patient is cognitively oriented x3. Psychomotor activity is within normal limits. There are no abnormal motor movements or tics observed. Gait and station are not observed. This patient is in bed during the inpatient psychiatric consult. Mood is depressed. Affect is cooperative overall for the purposes of the inpatient psychiatric consult. There is no behavioral or stated evidence of acute suicidal or homicidal ideation or acute psychotic delusional paranoid symptoms. Thought process is organized. There are no manic symptoms or loose associations evident. Judgment and insight appear unimpaired at this point in time. Motivation for help is good. VITAL SIGNS: 120/79, 57, 18, 97.2 degrees. IMPRESSION: Glencoe I: 1. Primary alcohol dependency, F10.20. 2. Depression, not otherwise specified, F32.9. 3. Anxiety disorder, not otherwise specified, F41.9. 4. Rule out major depressive disorder. Glencoe II: None. Glencoe III: 1. Status post right ankle. 2. Status post right tibia or fibula. 3. Question of bloody stool of unknown etiology. 4. Remote history of withdrawal seizures per staff report. 5. Possible symptoms of alcohol withdrawal. Glencoe IV: Severe. Glencoe V: 55. PLAN: 1. Sobriety. 2. AA. 3. Pastoral guidance. 4. Recommend beginning Prozac 20 mg q.a.m. to help with symptoms of depression. 5. We will defer a decision on restarting the patient's trazodone and clonidine to the patient's primary inpatient medical treatment team, but otherwise would wait to restart these medications until the patient talks with his primary outpatient MD and says he will continue these medications going forward. He has been started on Prozac 20 mg in the morning. 6. Recommend the patient attend treatment as being arranged by his family once he is discharged back to the community. 7. Recommend the patient follow up with Outpatient Psychiatry in about 2-4 weeks after discharge to assess overall function and efficacy of his newly instituted antidepressant medication. 8. We will continue follow up with the patient on an as needed basis while he remains on inpatient MICU going forward. 9. We will follow up with the patient sooner if any complications in the interim. 10.Crisis plan is in place. DOMI /[id number]
== END 2017-02-27 14:45 | disposition home or self-care (01) | DRG 392 ==
LOC: JD.ED 12:31 → JD.ICU 19:32
PROVIDERS: ADMIT Internal Medicine Cardiovascular Disease; ATTEND Internal Medicine Cardiovascular Disease
DX: K52.9 Noninfective gastroenteritis and colitis, unspecified (principal); K92.1 Melena; F10.20 Alcohol dependence, uncomplicated; F32.9 Major depressive disorder, single episode, unspecified; F41.9 Anxiety disorder, unspecified; I10 Essential (primary) hypertension; Z91.013 Allergy to seafood; Z86.19 Personal history of other infectious and parasitic diseases; F19.90 Other psychoactive substance use, unspecified, uncomplicated; R00.0 Tachycardia, unspecified; Y90.1 Blood alcohol level of 20-39 mg/100 ml
CPT/HCPCS: 36415; 71275; 71275-26; 74177; 74177-26; 80048; 80053; 80306; 81001; 83690; 83735; 85025; 85379; 85610; 86140; 86850; 86900; 86901; 93005; 93971-26-RT; 93971-RT; 96361; 96374; 96375; 99285; 99285-25; A9270-GY; C9113; G0480; J2060; J2405; J2765; J3475; J7030; J7040; J7050; J7120; Q9963; Q9967

== ENCOUNTER 2017-03-01 07:05 | Emergency (ER) | payer OTHER ==
[2017-03-01] MEDS ORDERED: Ondansetron 4 MG/2 ML SDV IVPUSH ONE (07:32)
[2017-03-01] MEDS ORDERED: Sodium Chloride 0.9% 10 ML Syringe FLUSH PRN (07:32)
[2017-03-01] MEDS ORDERED: HYDROmorphone 0.5 MG/0.5 ML Syringe IVPUSH ONE (07:34)
[2017-03-01] MEDS ORDERED: Sodium Chloride 0.9% 1,000 ML IV SCH (07:45)
--- NOTE | 2017-03-01 08:20 | CT ---
Head CT Technique: Multiple axial sections through the brain were obtained. Intravenous contrast was not utilized. Comparison: No previous intracranial imaging. Findings: Ventricles along with basal cisterns and sulci over the convexities are within normal limits for the patient's age. No abnormal parenchymal densities are seen. No evidence of intracranial hemorrhage. No midline shift or mass effect is seen. Bone window settings were reviewed which shows minimal mucosal thickening within the right side of the sphenoid sinus. Mild inward bowing of the right medial orbital wall is seen compatible with old fracture. No acute calvarial abnormality is seen. Impression: 1. Old appearing medial orbital wall fracture. 2. Slight sinus findings which are felt to be incidental. 3. Other portions of the noncontrast head CT study are felt to be within normal limits for the patient's age. Diagnostic code #2
--- NOTE | 2017-03-01 08:21 | CT ---
CT cervical spine Technique: Multiple axial sections were obtained from above C1 inferiorly to the top of T2. Reconstructed sagittal and coronal images were reviewed. Comparison: No previous cervical spine imaging. Findings: Visualized mastoid sinuses and middle ear cavities are clear. Posterior skull base is intact. Vertebral body heights and disc spaces are maintained. Vertebral bodies and posterior arches are intact. No fracture is seen. No bony central or bony neural foraminal stenosis is seen. Impression: 1. No abnormality is identified on CT study of the cervical spine. Diagnostic code #1
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
[2017-03-01] MEDS ORDERED: Sodium Chloride 0.9% 1,000 ML IV ONE (09:05)
[2017-03-01] MEDS ORDERED: Famotidine 20 MG/2 ML SDV IVPUSH ONE (09:06)
[2017-03-01 11:18] VITALS: BP 133/80
== END 2017-03-01 11:25 | disposition home or self-care (01) ==
LOC: SUPCPDRO 07:05 → JD.ED 07:05
DX: K29.21 Alcoholic gastritis with bleeding (principal); F10.120 Alcohol abuse with intoxication, uncomplicated; R51 Headache; M54.2 Cervicalgia; R60.9 Edema, unspecified; I10 Essential (primary) hypertension; F41.9 Anxiety disorder, unspecified; F32.9 Major depressive disorder, single episode, unspecified; B19.20 Unspecified viral hepatitis C without hepatic coma; Z79.899 Other long term (current) drug therapy; S00.81XD Abrasion of other part of head, subsequent encounter; Z91.5 Personal history of self-harm; R00.0 Tachycardia, unspecified; R73.02 Impaired glucose tolerance (oral); R74.8 Abnormal levels of other serum enzymes
CPT/HCPCS: 36415; 70450; 72125; 80053; 80306; 81001; 83690; 85025; 93005; 96361; 96374; 96375; 99285; G0480; J1170; J2405; J7040; J7050; 99284

== ENCOUNTER 2017-06-08 03:24 | Emergency (ER) | payer OTHER ==
[2017-06-08 03:29] VITALS: BP 117/78
[2017-06-08] MEDS ORDERED: Sodium Chloride 0.9% 1,000 ML IV SCH (04:00)
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
[2017-06-08 04:37] LABS: ACETAMINOPHEN 0 ug/mL (10-30)
== END 2017-06-08 06:07 | disposition home or self-care (01) ==
LOC: JD.ED 03:24
DX: S16.1XXA Strain of muscle, fascia and tendon at neck level, initial encounter (principal); F10.229 Alcohol dependence with intoxication, unspecified; R10.11 Right upper quadrant pain; R73.9 Hyperglycemia, unspecified; I10 Essential (primary) hypertension; Z90.49 Acquired absence of other specified parts of digestive tract; V89.2XXA Person injured in unspecified motor-vehicle accident, traffic, initial encounter; Z91.013 Allergy to seafood; Y90.0 Blood alcohol level of less than 20 mg/100 ml
CPT/HCPCS: 36415; 80053; 83690; 85025; 96360; 96361; 99284; 99285; G0480; J7040; 99283

== ENCOUNTER 2020-11-09 17:14 | Emergency (ER) | payer OTHER ==
[2020-11-09] MEDS ORDERED: Ondansetron 4 MG/2 ML SDV IVPUSH ONE (17:41)
[2020-11-09] MEDS ORDERED: Sodium Chloride 0.9% 10 ML Syringe FLUSH PRN (17:42)
[2020-11-09] MEDS ORDERED: Sodium Chloride 0.9% 1,000 ML IV STA (17:43)
--- NOTE | 2020-11-09 18:05 | EDM.PDOC ---
ED HPI GENERAL MEDICAL PROBLEM - General Chief Complaint: Drug or Alcohol Abuse Stated Complaint: [facility] Time Seen by Provider: 11/09/20 17:24 Source of Information: Reports: Patient, RN Notes Reviewed History Limitations: Reports: No Limitations - History of Present Illness INITIAL COMMENTS - FREE TEXT/NARRATIVE: Patient is a 30-year-old male presenting to the emergency department via [facility] with complaints of "liver pain" and alcohol withdrawal. Pain began last evening. Patient has been vomiting intermittently since that time as well. He admits to drinking a quarter gallon of whiskey daily. He has been trying to reduce the amount he drinks, therefore he switched to beer as his doctor had told him that he should not stop drinking cold turkey. Since last evening, he has had an 18 pack of beer. Thus far today, he has had 3 beers. Patient states that he has had a seizure in the past with unmedicated alcohol detox, but state that "it doesn't happen every time". He [place] 3 [place] [facility] [place] and states that he was sober for a total of 6 months before he started drinking again. He has a history of alcoholic liver cirrhosis and pancreatitis. He has had cholecystectomy in the past. Enroute to the hospital, EMS had given the patient Dilaudid 1 mg IV as well as Ativan 1 mg IV. Right Upper Abdominal Pain Score (Numeric/FACES): 6 - Related Data Allergies Allergy/AdvReac Type Severity Reaction Status Date / Time sea food Allergy Severe Airway Uncoded 11/10/20 10:49 Tightness Home Meds: Home Meds LORazepam [Ativan] 1 mg PO ASDIRECTED #18 tab 11/09/20 [Rx] Lactulose [Cephulac] 20 gm PO BID 30 Days #60 cup 11/09/20 [Rx] Ondansetron [Zofran ODT] 4 mg PO Q8H 3 Days #9 tab.dis 11/09/20 [Rx] PARoxetine HCL [Paroxetine HCl] 20 mg PO DAILY 11/09/20 [History] amLODIPine [Norvasc] 5 mg PO DAILY 11/09/20 [History] Past Medical History Cardiovascular History: Reports: Hypertension Gastrointestinal History: Reports: Gastritis, Helicobacter Pylori, Other (See Below) Other Gastrointestinal History: elevated liver enzymes. Musculoskeletal History: Reports: Fracture Other Musculoskeletal History: fx R) tib/fib. Psychiatric History: Reports: Addiction, Anxiety, Depression Other Psychiatric History: UP TO AGE 21 PT CUTS HIS LEFT ARM/WRIST Hematologic History: Reports: Other (See Below) Other Hematologic History: hepatits c - Infectious Disease History Infectious Disease History: Reports: Chicken Pox, Hepatitis C - Past Surgical History Cardiovascular Surgical History: Reports: None GI Surgical History: Reports: Cholecystectomy Musculoskeletal Surgical History: Reports: Other (See Below) Other Musculoskeletal Surgeries/Procedures:: L wrist surgery after suicide attempt, pt has numerous cut scars to L wrist Social & Family History - Family History Family Medical History: No Pertinent Family History - Tobacco Use Tobacco Use Status *Q: Never Tobacco User - Caffeine Use Caffeine Use: Reports: None - Alcohol Use Days Per Week of Alcohol Use: 7 Number of Drinks Per Day: 10 Total Drinks Per Week: 70 - Recreational Drug Use Recreational Drug Use: Yes Recreational Drug Type: Reports: Marijuana/Hashish Recreational Drug Use Frequency: Weekly - Living Situation & Occupation Living situation: Reports: , with Spouse, with Family (3 kids) 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 Denies: Fever, Chills, Weakness HEENT: Reports: No Symptoms Respiratory: Reports: No Symptoms Cardiovascular: Reports: No Symptoms Endocrine: Reports: No Symptoms GI/Abdominal: Reports: Abdominal Pain, Nausea, Vomiting. Denies: Diarrhea, Hematemesis : Reports: No Symptoms Musculoskeletal: Reports: No Symptoms Skin: Reports: No Symptoms Neurological: Reports: No Symptoms Psychiatric: Reports: Anxiety Hematologic/Lymphatic: Reports: No Symptoms Immunologic: Reports: No Symptoms ED EXAM, GI/ABD - Physical Exam Exam: See Below Exam Limited By: No Limitations General Appearance: Alert, WD/WN, No Apparent Distress Respiratory/Chest: No Respiratory Distress, Lungs Clear, Normal Breath Sounds, No Accessory Muscle Use, Chest Non-Tender Cardiovascular: Normal Peripheral Pulses, Regular Rate, Rhythm, No Edema, No Gallop, No JVD, No Murmur, No Rub GI/Abdominal Exam: Normal Bowel Sounds, Soft, No Organomegaly, No Abnormal Bruit, No Mass, Pelvis Stable, Distended (mildly), Tender (RUQ) Neurological: Alert, Oriented, CN II-XII Intact, Normal Cognition, Normal Gait, Normal Reflexes, No Motor/Sensory Deficits, Other (No visible tremor) Psychiatric: Normal Mood, Anxious Skin Exam: Warm, Dry, Intact, Normal Color, No Rash Course - Vital Signs Last Recorded V/S: Last Vital Signs Temp 97.8 F 11/10/20 06:30 Pulse 95 11/10/20 06:30 Resp 16 11/10/20 06:30 BP 138/85 11/10/20 06:30 Pulse Ox 98 11/10/20 06:30 - Orders/Labs/Meds Labs: Laboratory Tests 11/09/20 11/09/20 11/09/20 Range/Units 17:28 17:28 17:28 WBC 5.31 (4.23-9.07) K/mm3 RBC 5.42 (4.63-6.08) M/mm3 Hgb 15.9 (13.7-17.5) gm/dl Hct 48.6 (40.1-51.0) % MCV 89.7 D (79.0-92.2) fl MCH 29.3 (25.7-32.2) pg MCHC 32.7 (32.2-35.5) g/dl RDW Std Deviation 49.9 H (35.1-43.9) fL Plt Count 325 (163-337) K/mm3 MPV 9.3 L (9.4-12.3) fl Neut % (Auto) 58.3 (34.0-67.9) % Lymph % (Auto) 35.6 (21.8-53.1) % [place] % (Auto) 4.9 L (5.3-12.2) % Eos % (Auto) 0.4 L (0.8-7.0) Baso % (Auto) 0.6 (0.1-1.2) % Neut # (Auto) 3.10 (1.78-5.38) K/mm3 Lymph # (Auto) 1.89 (1.32-3.57) K/mm3 [place] # (Auto) 0.26 L (0.30-0.82) K/mm3 Eos # (Auto) 0.02 L (0.04-0.54) K/mm3 Baso # (Auto) 0.03 (0.01-0.08) K/mm3 PT (9.7-12.0) SECONDS INR Sodium 145 (136-145) mEq/L Potassium 4.2 (3.5-5.1) mEq/L Chloride 108 H (98-107) mEq/L Carbon Dioxide 25 (21-32) mEq/L Anion Gap 16.2 H (5-15) BUN 8 (7-18) mg/dL Creatinine 1.1 (0.7-1.3) mg/dL Est Cr Clr Drug Dosing 116.24 mL/min Estimated GFR (MDRD) > 60 (>60) mL/min BUN/Creatinine Ratio 7.3 L (14-18) Glucose 105 (74-106) mg/dL Calcium 8.5 (8.5-10.1) mg/dL Magnesium 2.2 (1.8-2.4) mg/dl Total Bilirubin 0.6 (0.2-1.0) mg/dL GGT 925 H (15-85) U/L AST 109 H (15-37) U/L ALT 104 H (16-63) U/L Alkaline Phosphatase 103 (46-116) U/L Ammonia (11-32) umol/L C-Reactive Protein <0.2 (<1.0) mg/dL Total Protein 7.4 (6.4-8.2) g/dl Albumin 3.7 (3.4-5.0) g/dl Globulin 3.7 gm/dL Albumin/Globulin Ratio 1.0 (1-2) Lipase 210 (73-393) U/L Urine Color (Yellow) Urine Appearance (Clear) Urine pH (5.0-8.0) Ur Specific [place] (1.005-1.030) Urine Protein (Negative) Urine Glucose (UA) (Negative) Urine Ketones (Negative) Urine Occult Blood (Negative) Urine Nitrite (Negative) Urine Bilirubin (Negative) Urine Urobilinogen (0.2-1.0) Ur Leukocyte Esterase (Negative) Urine RBC (0-5) /hpf Urine WBC (0-5) /hpf Ur Squamous Epith Cells (0-5) /hpf Urine Bacteria (FEW) /hpf Urine Mucus (FEW) /hpf Urine Opiates Screen (NGTFMN=975) Ur Buprenorphine Scrn (CUTOFF=10) Ur Oxycodone Screen (XQM9SQ=070) Urine Methadone Screen (WFN1AT=947) Ur Propoxyphene Screen (NTRBWN=976) Ur Barbiturates Screen (ZFXYAW=325) Ur Tricyclics Screen (NTVHZY=123) Ur Phencyclidine Scrn (CUTOFF=25) Ur Amphetamine Screen (VTHNUX=949) U Methamphetamines Scrn (JIZDLM=438) U Benzodiazepines Scrn (KSUFGH=547) U Cocaine Metab Screen (YAAFZT=183) U Marijuana (THC) Screen (CUTOFF=50) Ethyl Alcohol 0.28 (0.00) gm% 11/09/20 11/09/20 11/09/20 Range/Units 17:28 18:15 18:40 WBC (4.23-9.07) K/mm3 RBC (4.63-6.08) M/mm3 Hgb (13.7-17.5) gm/dl Hct (40.1-51.0) % MCV (79.0-92.2) fl MCH (25.7-32.2) pg MCHC (32.2-35.5) g/dl RDW Std Deviation (35.1-43.9) fL Plt Count (163-337) K/mm3 MPV (9.4-12.3) fl Neut % (Auto) (34.0-67.9) % Lymph % (Auto) (21.8-53.1) % [place] % (Auto) (5.3-12.2) % Eos % (Auto) (0.8-7.0) Baso % (Auto) (0.1-1.2) % Neut # (Auto) (1.78-5.38) K/mm3 Lymph # (Auto) (1.32-3.57) K/mm3 [place] # (Auto) (0.30-0.82) K/mm3 Eos # (Auto) (0.04-0.54) K/mm3 Baso # (Auto) (0.01-0.08) K/mm3 PT 11.9 (9.7-12.0) SECONDS INR 1.11 Sodium (136-145) mEq/L Potassium (3.5-5.1) mEq/L Chloride (98-107) mEq/L Carbon Dioxide (21-32) mEq/L Anion Gap (5-15) BUN (7-18) mg/dL Creatinine (0.7-1.3) mg/dL Est Cr Clr Drug Dosing mL/min Estimated GFR (MDRD) (>60) mL/min BUN/Creatinine Ratio (14-18) Glucose (74-106) mg/dL Calcium (8.5-10.1) mg/dL Magnesium (1.8-2.4) mg/dl Total Bilirubin (0.2-1.0) mg/dL GGT (15-85) U/L AST (15-37) U/L ALT (16-63) U/L Alkaline Phosphatase (46-116) U/L Ammonia 97 H (11-32) umol/L C-Reactive Protein (<1.0) mg/dL Total Protein (6.4-8.2) g/dl Albumin (3.4-5.0) g/dl Globulin gm/dL Albumin/Globulin Ratio (1-2) Lipase (73-393) U/L Urine Color (Yellow) Urine Appearance (Clear) Urine pH (5.0-8.0) Ur Specific [place] (1.005-1.030) Urine Protein (Negative) Urine Glucose (UA) (Negative) Urine Ketones (Negative) Urine Occult Blood (Negative) Urine Nitrite (Negative) Urine Bilirubin (Negative) Urine Urobilinogen (0.2-1.0) Ur Leukocyte Esterase (Negative) Urine RBC (0-5) /hpf Urine WBC (0-5) /hpf Ur Squamous Epith Cells (0-5) /hpf Urine Bacteria (FEW) /hpf Urine Mucus (FEW) /hpf Urine Opiates Screen Negative (CLIDTA=845) Ur Buprenorphine Scrn Negative (CUTOFF=10) Ur Oxycodone Screen Negative (TUN6NM=157) Urine Methadone Screen Negative (DLR6XY=585) Ur Propoxyphene Screen Negative (JFYFPR=615) Ur Barbiturates Screen Negative (NYTZLU=074) Ur Tricyclics Screen Negative (LCSQUS=732) Ur Phencyclidine Scrn Negative (CUTOFF=25) Ur Amphetamine Screen Negative (AOWVGC=564) U Methamphetamines Scrn Negative (FULADB=458) U Benzodiazepines Scrn Negative (HTDFCA=364) U Cocaine Metab Screen Negative (XPWWIP=592) U Marijuana (THC) Screen Presumptive positive H (CUTOFF=50) Ethyl Alcohol (0.00) gm% 11/09/20 Range/Units 18:40 WBC (4.23-9.07) K/mm3 RBC (4.63-6.08) M/mm3 Hgb (13.7-17.5) gm/dl Hct (40.1-51.0) % MCV (79.0-92.2) fl MCH (25.7-32.2) pg MCHC (32.2-35.5) g/dl RDW Std Deviation (35.1-43.9) fL Plt Count (163-337) K/mm3 MPV (9.4-12.3) fl Neut % (Auto) (34.0-67.9) % Lymph % (Auto) (21.8-53.1) % [place] % (Auto) (5.3-12.2) % Eos % (Auto) (0.8-7.0) Baso % (Auto) (0.1-1.2) % Neut # (Auto) (1.78-5.38) K/mm3 Lymph # (Auto) (1.32-3.57) K/mm3 [place] # (Auto) (0.30-0.82) K/mm3 Eos # (Auto) (0.04-0.54) K/mm3 Baso # (Auto) (0.01-0.08) K/mm3 PT (9.7-12.0) SECONDS INR Sodium (136-145) mEq/L Potassium (3.5-5.1) mEq/L Chloride (98-107) mEq/L Carbon Dioxide (21-32) mEq/L Anion Gap (5-15) BUN (7-18) mg/dL Creatinine (0.7-1.3) mg/dL Est Cr Clr Drug Dosing mL/min Estimated GFR (MDRD) (>60) mL/min BUN/Creatinine Ratio (14-18) Glucose (74-106) mg/dL Calcium (8.5-10.1) mg/dL Magnesium (1.8-2.4) mg/dl Total Bilirubin (0.2-1.0) mg/dL GGT (15-85) U/L AST (15-37) U/L ALT (16-63) U/L Alkaline Phosphatase (46-116) U/L Ammonia (11-32) umol/L C-Reactive Protein (<1.0) mg/dL Total Protein (6.4-8.2) g/dl Albumin (3.4-5.0) g/dl Globulin gm/dL Albumin/Globulin Ratio (1-2) Lipase (73-393) U/L Urine Color Yellow (Yellow) Urine Appearance Clear (Clear) Urine pH 6.5 (5.0-8.0) Ur Specific [place] 1.020 (1.005-1.030) Urine Protein Negative (Negative) Urine Glucose (UA) Negative (Negative) Urine Ketones Negative (Negative) Urine Occult Blood Negative (Negative) Urine Nitrite Negative (Negative) Urine Bilirubin Negative (Negative) Urine Urobilinogen 0.2 (0.2-1.0) Ur Leukocyte Esterase Negative (Negative) Urine RBC 0-5 (0-5) /hpf Urine WBC 0-5 (0-5) /hpf Ur Squamous Epith Cells 0-5 (0-5) /hpf Urine Bacteria Occasional (FEW) /hpf Urine Mucus Moderate H (FEW) /hpf Urine Opiates Screen (UCFLEK=041) Ur Buprenorphine Scrn (CUTOFF=10) Ur Oxycodone Screen (MIZ2HW=676) Urine Methadone Screen (AOB5KN=600) Ur Propoxyphene Screen (NJWOLD=634) Ur Barbiturates Screen (OMPGTU=638) Ur Tricyclics Screen (HOPWIR=901) Ur Phencyclidine Scrn (CUTOFF=25) Ur Amphetamine Screen (IZLMST=780) U Methamphetamines Scrn (UFVZPA=265) U Benzodiazepines Scrn (TJAHRX=059) U Cocaine Metab Screen (VFHAHY=846) U Marijuana (THC) Screen (CUTOFF=50) Ethyl Alcohol (0.00) gm% Meds: Medications Discontinued Medications Generic Name Dose Route Start Last Admin Trade Name Sissy PRN Reason Stop Dose Admin Famotidine 20 mg 11/09/20 18:19 11/09/20 18:38 Pepcid IVPUSH 11/09/20 18:20 20 mg ONETIME ONE Administration Sodium Chloride 1,000 mls @ 999 mls/hr 11/09/20 17:43 11/09/20 17:54 Normal Saline IV 11/09/20 18:43 999 mls/hr NOW STA Administration Sodium Chloride 1,000 mls @ 150 mls/hr 11/09/20 19:15 11/09/20 19:33 Normal Saline IV 150 mls/hr ASDIRECTED GISELE Administration Ketorolac Tromethamine 30 mg 11/09/20 18:26 11/09/20 18:38 Toradol IVPUSH 11/09/20 18:27 30 mg ONETIME ONE Administration Lorazepam 0.5 mg 11/09/20 20:27 11/09/20 20:36 Ativan IVPUSH 11/09/20 20:28 0.5 mg ONETIME ONE Administration Lorazepam 1 mg 11/09/20 23:29 11/09/20 23:40 Ativan PO 11/09/20 23:30 1 mg ONETIME ONE Administration Lorazepam 1 mg 11/10/20 03:57 11/10/20 04:59 Ativan PO 11/10/20 03:58 1 mg ONETIME ONE Administration Lorazepam 1 mg 11/10/20 05:12 11/10/20 06:45 Ativan PO 11/10/20 05:13 1 mg ONETIME ONE Administration Ondansetron HCl 4 mg 11/09/20 17:41 11/09/20 17:55 Zofran IVPUSH 11/09/20 17:42 4 mg ONETIME ONE Administration Ondansetron HCl 4 mg 11/09/20 23:44 11/09/20 23:48 Zofran Odt PO 11/09/20 23:45 4 mg ONETIME ONE Administration Ondansetron HCl 4 mg 11/10/20 03:57 11/10/20 04:10 Zofran Odt PO 11/10/20 03:58 4 mg ONETIME ONE Administration Ondansetron HCl 4 mg 11/10/20 05:12 11/10/20 06:45 Zofran Odt PO 11/10/20 05:13 4 mg ONETIME ONE Administration Sodium Chloride 10 ml 11/09/20 17:42 11/09/20 17:56 Saline Flush FLUSH 10 ml ASDIRECTED PRN Administration Keep Vein Open - Re-Assessments/Exams Free Text/Narrative Re-Assessment/Exam: Patient is a 30-year-old male presenting to the emergency department with complaints of abdominal pain, vomiting, and alcohol withdrawal. He has a long history of alcohol abuse and states that he has been trying to "wean off "hard liquor, therefore he has switched to beer. Since last evening he is drinking 18 pack of beer. He has been complaining of right upper quadrant abdominal pain since last evening. States that he has a history of liver cirrhosis and has had cholecystectomy in the past. In route to the ER, patient received IV Zofran, 1 mg of IV Dilaudid, and 1 mg of IV Ativan. Oxygen saturations have dipped as low as 85% when patient is resting, likely due to the medications given in route. I have ordered appropriate blood work, urinalysis, drug screen. We will give a 1 L bolus of normal saline as well as Zofran 4 mg IV for nausea. 11/09/20 18:30 Hematology was significant for chloride minimally elevated at 108, anion gap 16.2, GGT 925, AST 109, ALT 104. Total bili, alkaline phosphatase, lipase, and INR are all normal. Patient's blood alcohol is significantly elevated at 0.28. Ammonia is pending. Results discussed with patient. He indicates that he would like treatment for his alcoholism. Discussed that given his blood alcohol 0.28, we will not administer further narcotic medications due to risk of interaction. He requested Toradol for pain. I ordered Toradol 30 mg IV and Pepcid 20 mg IV. Patient will need to stay in the ER until he is more sober. We have called [facility], and a boat buffer plastic will come to evaluate him before placement to the residential crisis center once he is ready for discharge. 11/09/20 19:16 Ammonia was found to be elevated at 97. Case discussed with GI doctor at [facility] in [place], Dr. Sarkar. He recommended that we start the patient on lactulose 30 mg twice daily to achieve the recommended 3 bowel movements per day and prevent hepatic encephalopathy. I will send a referral for him to follow- up with him in the clinic. Talent Development Consultant from [facility] is here visiting with the patient at this time. 11/09/20 22:53 Pt has been resting quietly. Case discussed with Dr. Hughes. He will assume care and disposition of the pt until he is ready to go the the [facility]. Prescriptions of Ativan, Zofran, and lactulose have been sent to [facility]. Departure - Departure Time of Disposition: 06:55 Disposition: DC/Tfer to Other 70 Condition: Good Clinical Impression: Alcohol withdrawal syndrome Qualifiers: Complication of substance-induced condition: uncomplicated Qualified Code(s): F10.230 - Alcohol dependence with withdrawal, uncomplicated - Discharge Information *PRESCRIPTION DRUG MONITORING PROGRAM REVIEWED*: Yes *COPY OF PRESCRIPTION DRUG MONITORING REPORT IN PATIENT SAMI: No Prescriptions: LORazepam [Ativan] 1 mg PO ASDIRECTED #18 tab Lactulose [Cephulac] 20 gm PO BID 30 Days #60 cup Ondansetron [Zofran ODT] 4 mg PO Q8H 3 Days #9 tab.dis Instructions: Alcohol Use Disorder Referrals: Royer Sarkar MD [Ordering Only Provider] - Forms: ED Department Discharge Additional Instructions: You were seen in the emergency department today for alcohol intoxication with nausea, vomiting, abdominal pain. Blood work was completed. You were found to have elevated liver enzymes as well as an elevated ammonia related to your known history of alcoholic liver cirrhosis. We consulted with a manual winder at [facility] in [place], . He recommended that you start 30 mL of lactulose twice daily. You should be having at least 3 bowel movements daily to prevent development of hepatic encephalopathy. A referral has been sent to his office. Recommend that you call to schedule an appointment for monitoring of your liver cirrhosis. Arrangements have been made for you to go to the [facility] residential crisis center to obtain treatment for your alcoholism. A prescription for Ativan and Zofran to help with your withdrawal symptoms as well as a lactulose has been sent to [facility] [place]. These medications should be taken as prescribed. Recommend that you follow the alcohol treatment plan as set forth by [facility]. Return to ER as needed. Sepsis Event Note (ED) - Evaluation Sepsis Screening Result: No Definite Risk
[2020-11-09] MEDS ORDERED: Famotidine 20 MG/2 ML SDV IVPUSH ONE (18:19)
[2020-11-09] MEDS ORDERED: Ketorolac 30 MG/ML SDV IVPUSH ONE (18:26)
[2020-11-09] MEDS ORDERED: Sodium Chloride 0.9% 1,000 ML IV SCH (19:15)
[2020-11-09] MEDS ORDERED: LORazepam 2 MG/ML SDV IVPUSH ONE (20:27)
[2020-11-09] MEDS ORDERED: LORazepam 1 MG Tab PO ONE (23:29)
[2020-11-09] MEDS ORDERED: Ondansetron 4 MG Tab.DIS PO ONE (23:44)
[2020-11-10] MEDS ORDERED: LORazepam 1 MG Tab PO ONE ×2 (03:57→05:12)
[2020-11-10] MEDS ORDERED: Ondansetron 4 MG Tab.DIS PO ONE ×2 (03:57→05:12)
[2020-11-10 06:56] VITALS: BP 138/85; PULSE 95
== END 2020-11-10 06:45 | disposition other institution (70) ==
LOC: JD.ED 17:14
DX: F10.230 Alcohol dependence with withdrawal, uncomplicated (principal); Y90.8 Blood alcohol level of 240 mg/100 ml or more; I10 Essential (primary) hypertension; Z79.899 Other long term (current) drug therapy; Z91.013 Allergy to seafood
CPT/HCPCS: 36415; 80053; 80179; 80306; 81001; 82140; 82977; 83690; 83735; 85025; 85610; 86140; 96374; 96375; 99285; A9270; J1885; J2060; J2405; J3490; J7030; 99284

== ENCOUNTER 2020-11-10 10:34 | Inpatient (IN) | payer OTHER ==
[2020-11-10] MEDS ORDERED: Sodium Chloride 0.9% 10 ML Syringe FLUSH PRN (10:51)
[2020-11-10] MEDS ORDERED: LORazepam 2 MG/ML SDV IVPUSH ONE ×2 (10:52→12:05)
[2020-11-10] MEDS ORDERED: Lactated Ringers 1,000 ML IV SCH ×2 (11:00→13:00)
[2020-11-10] MEDS ORDERED: Metoprolol Tartrate 5 MG in Sodium Chloride 0.9% 50 ML IV ONE (12:05)
[2020-11-10] MEDS ORDERED: Metoprolol Tartrate 5 MG/5 ML SDV IVPUSH ONE (12:15)
[2020-11-10] MEDS ORDERED: Metoprolol Tartrate 25 MG Tab PO ONE (12:38)
[2020-11-10] MEDS ORDERED: chlordiazePOXIDE 25 MG Cap PO ONE (12:41)
--- NOTE | 2020-11-10 12:51 | EDM.PDOCBH ---
ED HPI GENERAL MEDICAL PROBLEM - General Chief Complaint: Drug or Alcohol Abuse Stated Complaint: [facility] Time Seen by Provider: 11/10/20 10:44 Source of Information: Reports: Patient, EMS, Provider History Limitations: Reports: No Limitations - History of Present Illness INITIAL COMMENTS - FREE TEXT/NARRATIVE: The patient presents by [facility] from [facility] for alcohol withdrawal. He was seen her last night for alcohol intoxication and right sided abdominal pain. He had a complete work up and his blood alcohol was elevated at 0.28. He also had elevated liver enzymes and an elevated ammonia. The patient did not have encephelopathy and GI was consulted and they recommended he have 3 stools per day. Lactulose was prescribed. The patient stayed in the ER over night and went to the [facility] this morning. He started having hallucinations this morning and his blood pressure was elevated. They sent him back for further management. He says he has some abdominal pain again. He has chills but no fever. He has no chest pain or shortness of breath. He is shaking slightly. Onset: Gradual Duration: Day(s): Location: Reports: Abdomen Quality: Reports: Ache Severity: Mild Improves with: Reports: None Worsens with: Reports: None Associated Symptoms: Reports: Nausea/Vomiting. Denies: Chest Pain, Cough, Fever/Chills, Headaches, Shortness of Breath Right Upper Abdomen Pain Score (Numeric/FACES): 8 - Related Data Allergies Allergy/AdvReac Type Severity Reaction Status Date / Time sea food Allergy Severe Airway Uncoded 11/10/20 10:49 Tightness Home Meds: Home Meds LORazepam [Ativan] 1 mg PO ASDIRECTED #18 tab 11/09/20 [Rx] Lactulose [Cephulac] 20 gm PO BID 30 Days #60 cup 11/09/20 [Rx] Ondansetron [Zofran ODT] 4 mg PO Q8H 3 Days #9 tab.dis 11/09/20 [Rx] PARoxetine HCL [Paroxetine HCl] 20 mg PO DAILY 11/09/20 [History] amLODIPine [Norvasc] 5 mg PO DAILY 11/09/20 [History] Past Medical History Cardiovascular History: Reports: Hypertension Gastrointestinal History: Reports: Gastritis, Helicobacter Pylori, Other (See Below) Other Gastrointestinal History: elevated liver enzymes. Musculoskeletal History: Reports: Fracture Other Musculoskeletal History: fx R) tib/fib. Psychiatric History: Reports: Addiction, Anxiety, Depression Other Psychiatric History: UP TO AGE 21 PT CUTS HIS LEFT ARM/WRIST Hematologic History: Reports: Other (See Below) Other Hematologic History: hepatits c - Infectious Disease History Infectious Disease History: Reports: Chicken Pox, Hepatitis C - Past Surgical History GI Surgical History: Reports: Cholecystectomy Musculoskeletal Surgical History: Reports: Other (See Below) Other Musculoskeletal Surgeries/Procedures:: L wrist surgery after suicide attempt, pt has numerous cut scars to L wrist Social & Family History - Family History Family Medical History: No Pertinent Family History - Tobacco Use Tobacco Use Status *Q: Never Tobacco User Second Hand Smoke Exposure: No - Caffeine Use Caffeine Use: Reports: None - Alcohol Use Days Per Week of Alcohol Use: 7 Number of Drinks Per Day: 10 Total Drinks Per Week: 70 - Recreational Drug Use Recreational Drug Use: Yes Recreational Drug Type: Reports: Marijuana/Hashish Recreational Drug Use Frequency: Monthly - Living Situation & Occupation Living situation: Reports: , with Spouse, with Family (3 kids) 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 Denies: Vomiting : Reports: No Symptoms Musculoskeletal: Reports: No Symptoms ED EXAM, BEHAVIORAL HEALTH - Physical Exam Exam: See Below Exam Limited By: No Limitations General Appearance: Alert, No Apparent Distress Ears: Normal External Exam Nose: Normal Inspection Head: Atraumatic, Normocephalic Neck: Normal Inspection Respiratory/Chest: No Respiratory Distress, Lungs Clear, Normal Breath Sounds Cardiovascular: Regular Rate, Rhythm, No Edema, No Murmur GI/Abdominal: Soft, Non-Tender, No Organomegaly, No Mass Back Exam: Normal Inspection Extremities: Normal Inspection COURSE, BEHAVIORAL HEALTH COMP - Course Vital Signs: Last Vital Signs Temp 97.5 F 11/10/20 10:41 Pulse 132 H 11/10/20 12:23 Resp 19 11/10/20 10:41 BP 147/101 H 11/10/20 12:23 Pulse Ox 96 11/10/20 10:41 Orders, Labs, Meds: Active Orders 24 hr Category Date Time Status Cardiac Monitoring [RC] . DIRECTED Care 11/10/20 10:51 Active Peripheral IV Care [RC] . DIRECTED Care 11/10/20 10:52 Active Lactated Ringers [Ringers, Lactated] 1,000 ml Med 11/10/20 11:00 Active IV .BOLUS Sodium Chloride 0.9% [Saline Flush] Med 11/10/20 10:51 Active 10 ml FLUSH ASDIRECTED PRN Peripheral IV Insertion Adult [OM.PC] Stat Oth 11/10/20 10:51 Ordered Medication Orders Lactated Ringer's (Ringers, Lactated) 1,000 mls @ 500 mls/hr IV .BOLUS GISELE Last Admin: 11/10/20 11:03 Dose: 500 mls/hr Documented by: SHEA Sodium Chloride (Saline Flush) 10 ml FLUSH ASDIRECTED PRN PRN Reason: Keep Vein Open Last Admin: 11/10/20 11:04 Dose: 10 ml Documented by: SHEA Laboratory Tests 11/10/20 11/10/20 Range/Units 10:55 10:55 WBC 8.91 (4.23-9.07) K/mm3 RBC 5.26 (4.63-6.08) M/mm3 Hgb 15.4 (13.7-17.5) gm/dl Hct 47.5 (40.1-51.0) % MCV 90.3 (79.0-92.2) fl MCH 29.3 (25.7-32.2) pg MCHC 32.4 (32.2-35.5) g/dl RDW Std Deviation 50.7 H (35.1-43.9) fL Plt Count 312 (163-337) K/mm3 MPV 9.3 L (9.4-12.3) fl Neut % (Auto) 79.1 H (34.0-67.9) % Lymph % (Auto) 15.8 L (21.8-53.1) % [place] % (Auto) 4.5 L (5.3-12.2) % Eos % (Auto) 0.3 L (0.8-7.0) Baso % (Auto) 0.2 (0.1-1.2) % Neut # (Auto) 7.04 H (1.78-5.38) K/mm3 Lymph # (Auto) 1.41 (1.32-3.57) K/mm3 [place] # (Auto) 0.40 (0.30-0.82) K/mm3 Eos # (Auto) 0.03 L (0.04-0.54) K/mm3 Baso # (Auto) 0.02 (0.01-0.08) K/mm3 Sodium 144 (136-145) mEq/L Potassium 3.8 (3.5-5.1) mEq/L Chloride 107 (98-107) mEq/L Carbon Dioxide 23 (21-32) mEq/L Anion Gap 17.8 H (5-15) BUN 10 (7-18) mg/dL Creatinine 1.2 (0.7-1.3) mg/dL Est Cr Clr Drug Dosing 106.56 mL/min Estimated GFR (MDRD) > 60 (>60) mL/min BUN/Creatinine Ratio 8.3 L (14-18) Glucose 106 (74-106) mg/dL Calcium 9.2 (8.5-10.1) mg/dL Magnesium 1.7 L (1.8-2.4) mg/dl Total Bilirubin 1.3 H (0.2-1.0) mg/dL AST 106 H (15-37) U/L ALT 127 H (16-63) U/L Alkaline Phosphatase 116 (46-116) U/L Total Protein 7.6 (6.4-8.2) g/dl Albumin 4.0 (3.4-5.0) g/dl Globulin 3.6 gm/dL Albumin/Globulin Ratio 1.1 (1-2) Ethyl Alcohol 0.00 (0.00) gm% Medications Generic Name Dose Route Start Last Admin Trade Name Freq PRN Reason Stop Dose Admin Lactated Ringer's 1,000 mls @ 500 mls/hr 11/10/20 11:00 11/10/20 11:03 Ringers, Lactated IV 500 mls/hr .BOLUS GISELE Administration Sodium Chloride 10 ml 11/10/20 10:51 11/10/20 11:04 Saline Flush FLUSH 10 ml ASDIRECTED PRN Administration Keep Vein Open Discontinued Medications Generic Name Dose Route Start Last Admin Trade Name Freq PRN Reason Stop Dose Admin Chlordiazepoxide HCl 50 mg 11/10/20 12:41 Librium PO 11/10/20 12:42 ONETIME ONE Metoprolol Tartrate 5 mg/ 55 mls @ 100 mls/hr 11/10/20 12:05 11/10/20 12:17 Sodium Chloride IV 11/10/20 12:37 Not Given ONETIME ONE Lorazepam 1 mg 11/10/20 10:52 11/10/20 11:04 Ativan IVPUSH 11/10/20 10:53 1 mg ONETIME ONE Administration Lorazepam 1 mg 11/10/20 12:05 11/10/20 12:22 Ativan IVPUSH 11/10/20 12:06 1 mg ONETIME ONE Administration Metoprolol Tartrate 5 mg 11/10/20 12:15 11/10/20 12:23 Lopressor IVPUSH 11/10/20 12:16 5 mg ONETIME ONE Administration Metoprolol Tartrate 25 mg 11/10/20 12:38 Lopressor PO 11/10/20 12:39 ONETIME ONE Re-Assessment/Re-Exam: I ordered an IV LR 1L bolus, ativan 1mg IV, and labs. His CBC looks good. His anion gap was elevated at 17.8. His magnesium was a little low at 1.7. His total bili was elevated at was elevated at 1.3. His total bili was normal yesterday. His AST was elevated at 106. His ALT was elevated at 127. His ETOH is 0. His heart rate was still elevated so I ordered ativan 1mg IV, metoprolol 5mg IV, metoprolol 25mg PO and I talked with Dr Whittaker and he agreed to the admission. He wanted me to give him some librium. Departure - Departure Time of Disposition: 12:55 Disposition: Admitted As Inpatient 68 Condition: Fair Clinical Impression: Alcohol withdrawal syndrome Qualifiers: Complication of substance-induced condition: uncomplicated Qualified Code(s): F10.230 - Alcohol dependence with withdrawal, uncomplicated - Discharge Information Referrals: PCP,Not In Area [Primary Care Provider] - Sepsis Event Note (ED) - Evaluation Sepsis Screening Result: No Definite Risk - Focused Exam Vital Signs: Vital Signs Temp Pulse Pulse Resp BP BP Pulse Ox 11/10/20 12:23 132 H 147/101 H 11/10/20 10:41 97.5 F 136 H 19 161/94 H 96 - My Orders Last 24 Hours: My Active Orders 11/10/20 10:51 Cardiac Monitoring [RC] . DIRECTED Sodium Chloride 0.9% [Saline Flush] 10 ml FLUSH ASDIRECTED PRN Peripheral IV Insertion Adult [OM.PC] Stat 11/10/20 10:52 Peripheral IV Care [RC] . DIRECTED 11/10/20 11:00 Lactated Ringers [Ringers, Lactated] 1,000 ml IV .BOLUS - Assessment/Plan Last 24 Hours: My Active Orders 11/10/20 10:51 Cardiac Monitoring [RC] . DIRECTED Sodium Chloride 0.9% [Saline Flush] 10 ml FLUSH ASDIRECTED PRN Peripheral IV Insertion Adult [OM.PC] Stat 11/10/20 10:52 Peripheral IV Care [RC] . DIRECTED 11/10/20 11:00 Lactated Ringers [Ringers, Lactated] 1,000 ml IV .BOLUS
[2020-11-10] MEDS: Ketorolac 15 MG/ML SDV IVPUSH PRN ×2 (15:35→23:19)
[2020-11-10 15:41] VITALS: PULSE 100
[2020-11-10] MEDS ORDERED: Thiamine 100 MG in Sodium Chloride 0.9% 50 ML IV ONE (15:43)
[2020-11-10] MEDS ORDERED: LORazepam 1 MG Tab PO PRN (15:43)
[2020-11-10] MEDS ORDERED: Multivitamins,Therapeutic Tab PO ONE (15:43)
[2020-11-10] MEDS ORDERED: chlordiazePOXIDE 25 MG Cap PO SCH (15:45)
--- NOTE | 2020-11-10 15:56 | PCM.HP.2 ---
H&P History of Present Illness - General Date of Service: 11/10/20 Admit Problem/Dx: Admission Diagnosis/Problem Admission Diagnosis/Problem Alcohol withdrawal syndrome - History of Present Illness Initial Comments - Free Text/Narative: 30-year-old male was seen in the emergency department yesterday for alcohol w ithdrawal. He was kept in the emergency department overnight and referred to [facility] where he developed tachycardia, hypertension, and hallucinations. Patient was sent back to the emergency department and admitted to us for further detox. Patient states he has had unwitnessed seizures secondary to trying to detox at home in the past. He also states he was intubated 1 time for several days secondary to alcohol withdrawal. Patient did have an elevated ammonia level on initial ED visit and he was started on lactulose. After discussing case with GI they recommended that he have 3 bowel movements a day. In the emergency department he did receive a bolus of LR and 1 mg of IV Ativan. He also received metoprolol IV and p.o. I asked that they give him a dose of Librium in the emergency department. Patient also complained of some right upper quadrant pain. He also with his liver pain. He was requesting pain medication. Right Upper Abdomen Pain Score (Numeric/FACES): 7 - Related Data Allergies/Adverse Reactions: Allergies Allergy/AdvReac Type Severity Reaction Status Date / Time sea food Allergy Severe Airway Uncoded 11/10/20 10:49 Tightness Home Medications: Home Meds LORazepam [Ativan] 1 mg PO ASDIRECTED #18 tab 11/09/20 [Rx] Lactulose [Cephulac] 20 gm PO BID 30 Days #60 cup 11/09/20 [Rx] Ondansetron [Zofran ODT] 4 mg PO Q8H 3 Days #9 tab.dis 11/09/20 [Rx] PARoxetine HCL [Paroxetine HCl] 20 mg PO DAILY 11/09/20 [History] amLODIPine [Norvasc] 5 mg PO DAILY 11/09/20 [History] Past Medical History Cardiovascular History: Reports: Hypertension Gastrointestinal History: Reports: Gastritis, Helicobacter Pylori, Other (See Below) Other Gastrointestinal History: elevated liver enzymes. Musculoskeletal History: Reports: Fracture Other Musculoskeletal History: fx R) tib/fib. Psychiatric History: Reports: Addiction, Anxiety, Depression Other Psychiatric History: UP TO AGE 21 PT CUTS HIS LEFT ARM/WRIST Hematologic History: Reports: Other (See Below) Other Hematologic History: hepatits c - Infectious Disease History Infectious Disease History: Reports: Chicken Pox, Hepatitis C - Past Surgical History Cardiovascular Surgical History: Reports: None GI Surgical History: Reports: Cholecystectomy Musculoskeletal Surgical History: Reports: Other (See Below) Other Musculoskeletal Surgeries/Procedures:: L wrist surgery after suicide attempt, pt has numerous cut scars to L wrist Social & Family History - Family History Family Medical History: No Pertinent Family History - Tobacco Use Tobacco Use Status *Q: Never Tobacco User Second Hand Smoke Exposure: No - Caffeine Use Caffeine Use: Reports: None - Alcohol Use Days Per Week of Alcohol Use: 7 Number of Drinks Per Day: 10 Total Drinks Per Week: 70 - Recreational Drug Use Recreational Drug Use: Yes Recreational Drug Type: Reports: Marijuana/Hashish Recreational Drug Use Frequency: Monthly - Living Situation & Occupation Living situation: Reports: , with Spouse, with Family (3 kids) 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 Exam - Exam Exam: See Below - Vital Signs Vital Signs: Last Vital Signs Temp 98.8 F 11/10/20 14:35 Pulse 100 11/10/20 14:35 Resp 22 H 11/10/20 15:00 BP 144/94 H 11/10/20 14:51 Pulse Ox 96 11/10/20 15:00 Weight: 265 lb 8 oz - Exam Quality Assessment: No: Supplemental Oxygen General: Alert, Oriented, 4 HEENT: Conjunctiva Clear, Mucosa Moist & [place], Normal Nasal Septum Neck: Supple, Trachea Midline, 2 Lungs: Clear to Auscultation, Normal Respiratory Effort Cardiovascular: Regular Rate, Regular Rhythm GI/Abdominal Exam: Normal Bowel Sounds, Soft, No Distention, Tender (Mild right upper quadrant tenderness without guarding or rebound) Extremities: Normal Inspection, Normal Range of Motion, Non-Tender, No Pedal Edema, Normal Capillary Refill Skin: Warm, Dry, Intact Neuro Extensive - Mental Status: Alert, Oriented x3, Normal Mood/Affect, Normal Cognition Psychiatric: Alert, Normal Affect, Normal Mood - Patient Data Lab Results Last 24 hrs: Laboratory Results - last 24 hr 11/10/20 11/10/20 11/10/20 Range/Units 10:55 10:55 13:18 WBC 8.91 (4.23-9.07) K/mm3 RBC 5.26 (4.63-6.08) M/mm3 Hgb 15.4 (13.7-17.5) gm/dl Hct 47.5 (40.1-51.0) % MCV 90.3 (79.0-92.2) fl MCH 29.3 (25.7-32.2) pg MCHC 32.4 (32.2-35.5) g/dl RDW Std Deviation 50.7 H (35.1-43.9) fL Plt Count 312 (163-337) K/mm3 MPV 9.3 L (9.4-12.3) fl Neut % (Auto) 79.1 H (34.0-67.9) % Lymph % (Auto) 15.8 L (21.8-53.1) % [place] % (Auto) 4.5 L (5.3-12.2) % Eos % (Auto) 0.3 L (0.8-7.0) Baso % (Auto) 0.2 (0.1-1.2) % Neut # (Auto) 7.04 H (1.78-5.38) K/mm3 Lymph # (Auto) 1.41 (1.32-3.57) K/mm3 [place] # (Auto) 0.40 (0.30-0.82) K/mm3 Eos # (Auto) 0.03 L (0.04-0.54) K/mm3 Baso # (Auto) 0.02 (0.01-0.08) K/mm3 Sodium 144 (136-145) mEq/L Potassium 3.8 (3.5-5.1) mEq/L Chloride 107 (98-107) mEq/L Carbon Dioxide 23 (21-32) mEq/L Anion Gap 17.8 H (5-15) BUN 10 (7-18) mg/dL Creatinine 1.2 (0.7-1.3) mg/dL Est Cr Clr Drug Dosing 106.56 mL/min Estimated GFR (MDRD) > 60 (>60) mL/min BUN/Creatinine Ratio 8.3 L (14-18) Glucose 106 (74-106) mg/dL Calcium 9.2 (8.5-10.1) mg/dL Magnesium 1.7 L (1.8-2.4) mg/dl Total Bilirubin 1.3 H (0.2-1.0) mg/dL AST 106 H (15-37) U/L ALT 127 H (16-63) U/L Alkaline Phosphatase 116 (46-116) U/L Total Protein 7.6 (6.4-8.2) g/dl Albumin 4.0 (3.4-5.0) g/dl Globulin 3.6 gm/dL Albumin/Globulin Ratio 1.1 (1-2) Ethyl Alcohol 0.00 (0.00) gm% SARS-CoV-2 RNA (ALAYNA) Negative (NEGATIVE) Result Diagrams: 11/11/20 05:52 11/11/20 05:52 Sepsis Event Note - Evaluation Sepsis Screening Result: No Definite Risk - Focused Exam Vital Signs: Vital Signs Temp Pulse Pulse Resp BP BP Pulse Ox 11/10/20 15:00 22 H 96 11/10/20 14:51 19 144/94 H 97 11/10/20 14:50 23 H 98 11/10/20 14:44 23 H 96 11/10/20 14:35 98.8 F 100 18 145/94 H 99 11/10/20 14:30 19 127/88 95 11/10/20 13:15 106 H 131/88 11/10/20 12:23 132 H 147/101 H 11/10/20 10:41 97.5 F 136 H 19 161/94 H 96 - Problem List (1) Increased ammonia level SNOMED Code(s): 719627745, 035541892, 498283000 ICD Code: R79.89 - OTHER SPECIFIED ABNORMAL FINDINGS OF BLOOD CHEMISTRY Status: Acute Current Visit: Yes (2) Alcohol withdrawal syndrome SNOMED Code(s): 578569745 ICD Code: F10.239 - ALCOHOL DEPENDENCE WITH WITHDRAWAL, UNSPECIFIED Status: Acute Current Visit: Yes Qualifiers: Complication of substance-induced condition: uncomplicated Qualified Code(s): F10.230 - Alcohol dependence with withdrawal, uncomplicated (3) Abdominal pain of unknown etiology SNOMED Code(s): 967714467 ICD Code: R10.9 - UNSPECIFIED ABDOMINAL PAIN Status: Acute Current Visit: No Problem List Initiated/Reviewed/Updated: Yes Orders Last 24hrs: Active Orders 24 hr Category Date Time Status Patient Status [ADT] Routine ADT 11/10/20 13:07 Active Aspiration Precautions [RC] ASDIRECTED Care 11/10/20 15:43 Ordered Assess Neurological Status [RC] ASDIRECTED Care 11/10/20 15:43 Ordered CIWAA Assessment [RC] Q15M Care 11/10/20 15:43 Ordered CIWAA Assessment [RC] Q1H Care 11/10/20 15:43 Ordered CIWAA Assessment [RC] Q30M Care 11/10/20 15:43 Ordered CIWAA Assessment [RC] Q4H Care 11/10/20 15:43 Ordered Notify Provider [RC] PRN Care 11/10/20 15:43 Ordered Oxygen Therapy [RC] PRN Care 11/10/20 15:43 Ordered Up With Assistance [RC] ASDIRECTED Care 11/10/20 15:43 Ordered VTE/DVT Education [RC] PER UNIT ROUTINE Care 11/10/20 15:43 Ordered Vital Signs [RC] ASDIRECTED Care 11/10/20 15:43 Ordered Consult to Case Management/Poem Writer [CONS] Cons 11/10/20 15:43 Ordered Routine Regular Diet [DIET] Diet 11/10/20 Dinner Active Dextrose 5%-1/2 Normal Saline @ 100 MLS/HR(1000ml) Med 11/10/20 15:45 Ordered Dextrose 5%-0.45% NaCl [Dextrose 5%-1/2 NS] 1,000 ml IV ASDIRECTED Enoxaparin [Lovenox] Med 11/11/20 09:00 Ordered 40 mg SUBCUT DAILY Famotidine [Pepcid] Med 11/10/20 21:00 Ordered 20 mg PO Q12H Folic Acid Med 11/10/20 16:00 Ordered 1 mg PO DAILY Ketorolac [Toradol] Med 11/10/20 15:17 Active 15 mg IVPUSH Q6H PRN LORazepam [Ativan] Med 11/10/20 15:43 Ordered See Protocol IV ASDIRECTED PRN LORazepam [Ativan] Med 11/10/20 15:43 Ordered See Protocol PO ASDIRECTED PRN Lactated Ringers [Ringers, Lactated] 1,000 ml Med 11/10/20 11:00 Active IV .BOLUS Lactated Ringers [Ringers, Lactated] 1,000 ml Med 11/10/20 13:00 Active IV ASDIRECTED Lactulose [Cephulac] Med 11/10/20 21:00 Active 20 gm PO BID Multivitamins,Therapeutic [Thera] Med 11/10/20 15:43 Once 1 each PO ONETIME ONE PARoxetine [Paxil] Med 11/11/20 09:00 Active 20 mg PO DAILY Sodium Chloride 0.9% [Saline Flush] Med 11/10/20 10:51 Active 10 ml FLUSH ASDIRECTED PRN Thiamine [Vitamin B-1] Med 11/11/20 09:00 Ordered 100 mg PO DAILY Thiamine [Vitamin B-1] 100 mg Med 11/10/20 15:43 Ordered Sodium Chloride 0.9% [Normal Saline] 50 ml IV ONETIME chlordiazePOXIDE [Librium] Med 11/10/20 15:45 Ordered See Protocol PO ASDIRECTED Peripheral IV Insertion Adult [OM.PC] Stat Oth 11/10/20 10:51 Ordered Seizure Precautions [OM.PC] Routine Oth 11/10/20 15:43 Ordered Resuscitation Status Routine Resus Stat 11/10/20 15:09 Ordered Medication Orders Chlordiazepoxide HCl (Librium) 0 mg PO ASDIRECTED GISELE; Protocol Enoxaparin Sodium (Lovenox) 40 mg SUBCUT DAILY GISELE Famotidine (Pepcid) 20 mg PO Q12H GISELE Folic Acid (Folic Acid) 1 mg PO DAILY GISELE Stop: 11/12/20 09:01 Lactated Ringer's (Ringers, Lactated) 1,000 mls @ 500 mls/hr IV .BOLUS GISELE Last Admin: 11/10/20 11:03 Dose: 500 mls/hr Documented by: SHEA Lactated Ringer's (Ringers, Lactated) 1,000 mls @ 150 mls/hr IV ASDIRECTED GISELE Last Admin: 11/10/20 13:14 Dose: 150 mls/hr Documented by: MELISA Thiamine HCl 100 mg/ Sodium (Chloride) 51 mls @ 100 mls/hr IV ONETIME ONE Stop: 11/10/20 16:13 Dextrose/Sodium Chloride (Dextrose 5%-1/2 Ns) 1,000 mls @ 100 mls/hr IV ASDIRECTED [facility] Ketorolac Tromethamine (Toradol) 15 mg IVPUSH Q6H PRN PRN Reason: Abdominal Pain Last Admin: 11/10/20 15:35 Dose: 15 mg Documented by: LESVIA Lactulose (Cephulac) 20 gm PO BID GISELE Lorazepam (Ativan) 0 mg IV ASDIRECTED PRN; Protocol PRN Reason: Withdrawal Symptoms Lorazepam (Ativan) 0 mg PO ASDIRECTED PRN; Protocol PRN Reason: Withdrawal Symptoms Multivitamins (Thera) 1 each PO ONETIME ONE Stop: 11/10/20 15:44 Paroxetine HCl (Paxil) 20 mg PO DAILY GISELE Sodium Chloride (Saline Flush) 10 ml FLUSH ASDIRECTED PRN PRN Reason: Keep Vein Open Last Admin: 11/10/20 11:04 Dose: 10 ml Documented by: SHEA Thiamine HCl (Vitamin B-1) 100 mg PO DAILY GISELE Assessment/Plan Comment:: Assessment 30-year-old male with history of alcoholism of 1 quart of Jose Antonio Muñoz a day over the last few weeks and heavy drinking for many years returns to the emergency department for alcohol detox. * Alcohol withdrawal syndrome -currently on CIWA protocol with Librium scheduled and Ativan as needed. Patient has a history of alcohol withdrawal seizures, unwitnessed, and 1 episode of intubation reportedly by patient, but he does not know how long ago. * Elevated liver enzymes - AST 106, ALT 127, total bilirubin 1.3, albumin 4.0, INR not available * elevated ammonia level - Ammonia level on November 09, 2020 was 97. Started on lactulose * Elevated blood pressure without diagnosis of hypertensionlikely secondary to alcohol withdrawal Plan * Admit to ICU for alcohol detox * Librium protocol * Ativan IV/p.o. for elevated CIWA's * Folic acid, thiamine replacement * Monitor blood pressure but do not necessarily treat unless systolic blood pressure is greater than 180, diastolic blood pressure greater than 105 * Follow CBC, CMP * Pepcid 20 mg twice daily * Continue lactulose. * Patient appears to have been started on Paxil while at [facility] so we will continue it. * VTE prophylaxis with Lovenox. * CODE STATUS: Full code - Mortality Measure Prognosis:: Good
[2020-11-10] MEDS ORDERED: Thiamine 200 MG/2 ML MDV IVPUSH ONE (16:31)
[2020-11-10] MEDS: chlordiazePOXIDE 25 MG Cap PO SCH ×2 (16:37→20:36)
[2020-11-10] MEDS: Dextrose 5%-0.45% NaCl 1,000 ML IV SCH (16:38)
[2020-11-10] MEDS: Folic Acid 1 MG Tab PO SCH (16:38)
[2020-11-10] MEDS: Famotidine 20 MG Tab PO SCH (20:36)
[2020-11-10] MEDS: Lactulose Soln 10 GM/15 ML 30 ML UD Cup PO SCH (20:37)
[2020-11-10] MEDS: LORazepam 2 MG/ML SDV IV PRN (20:57)
[2020-11-11] MEDS: chlordiazePOXIDE 25 MG Cap PO SCH ×6 (00:30→21:29)
[2020-11-11] MEDS: Dextrose 5%-0.45% NaCl 1,000 ML IV SCH ×3 (02:47→21:29)
[2020-11-11] MEDS: Ketorolac 15 MG/ML SDV IVPUSH PRN ×3 (06:09→22:59)
[2020-11-11] MEDS: Folic Acid 1 MG Tab PO SCH (08:30)
[2020-11-11] MEDS: Famotidine 20 MG Tab PO SCH ×2 (08:30→21:30)
--- NOTE | 2020-11-11 08:33 | PCM.PN ---
- General Info Date of Service: 11/11/20 Admission Dx/Problem (Free Text): Admission Diagnosis/Problem Admission Diagnosis/Problem Alcohol withdrawal syndrome Subjective Update: The patient is a 30-year-old gentleman who originally had presented to the emergency department on November 09, 2020. The patient was sent to rehab and which promptly returned due to alcohol withdrawal symptoms concerning for seizures and hallucinations. Patient then was admitted to acute hospitalization on November 10, 2020. Patient today says that he feels somewhat better. He does have a history of seizures when withdrawing from alcohol. The patient also says that he has been tolerating his diet. He has been complaining of right upper quadrant abdominal pain. The patient also says that the tramadol has not been helping. Functional Status: Reports: New Symptoms (Right upper quadrant abdominal pain). Denies: Pain Controlled - Review of Systems General: Reports: Weakness, Night Sweats HEENT: Reports: No Symptoms Pulmonary: Reports: No Symptoms Cardiovascular: Reports: No Symptoms Gastrointestinal: Reports: Abdominal Pain Genitourinary: Reports: No Symptoms Musculoskeletal: Reports: No Symptoms Skin: Reports: No Symptoms Neurological: Reports: Tremors Psychiatric: Reports: No Symptoms - Patient Data Vitals - Most Recent: Last Vital Signs Temp 36.7 C 11/11/20 08:00 Pulse 100 11/10/20 14:35 Resp 16 11/11/20 08:00 BP 129/73 11/11/20 08:00 Pulse Ox 95 11/11/20 08:00 Weight - Most Recent: 120.656 kg I&O - Last 24 Hours: Intake & Output 11/10/20 11/11/20 11/11/20 22:59 06:59 14:59 Intake Total 100 1833 Output Total 400 Balance -300 1833 Lab Results Last 24 Hours: Laboratory Results - last 24 hr 11/10/20 11/10/20 11/10/20 Range/Units 10:55 10:55 13:18 WBC 8.91 (4.23-9.07) K/mm3 RBC 5.26 (4.63-6.08) M/mm3 Hgb 15.4 (13.7-17.5) gm/dl Hct 47.5 (40.1-51.0) % MCV 90.3 (79.0-92.2) fl MCH 29.3 (25.7-32.2) pg MCHC 32.4 (32.2-35.5) g/dl RDW Std Deviation 50.7 H (35.1-43.9) fL Plt Count 312 (163-337) K/mm3 MPV 9.3 L (9.4-12.3) fl Neut % (Auto) 79.1 H (34.0-67.9) % Lymph % (Auto) 15.8 L (21.8-53.1) % [place] % (Auto) 4.5 L (5.3-12.2) % Eos % (Auto) 0.3 L (0.8-7.0) Baso % (Auto) 0.2 (0.1-1.2) % Neut # (Auto) 7.04 H (1.78-5.38) K/mm3 Lymph # (Auto) 1.41 (1.32-3.57) K/mm3 [place] # (Auto) 0.40 (0.30-0.82) K/mm3 Eos # (Auto) 0.03 L (0.04-0.54) K/mm3 Baso # (Auto) 0.02 (0.01-0.08) K/mm3 Sodium 144 (136-145) mEq/L Potassium 3.8 (3.5-5.1) mEq/L Chloride 107 (98-107) mEq/L Carbon Dioxide 23 (21-32) mEq/L Anion Gap 17.8 H (5-15) BUN 10 (7-18) mg/dL Creatinine 1.2 (0.7-1.3) mg/dL Est Cr Clr Drug Dosing 106.56 mL/min Estimated GFR (MDRD) > 60 (>60) mL/min BUN/Creatinine Ratio 8.3 L (14-18) Glucose 106 (74-106) mg/dL Calcium 9.2 (8.5-10.1) mg/dL Phosphorus (2.6-4.7) mg/dL Magnesium 1.7 L (1.8-2.4) mg/dl Total Bilirubin 1.3 H (0.2-1.0) mg/dL AST 106 H (15-37) U/L ALT 127 H (16-63) U/L Alkaline Phosphatase 116 (46-116) U/L Total Protein 7.6 (6.4-8.2) g/dl Albumin 4.0 (3.4-5.0) g/dl Globulin 3.6 gm/dL Albumin/Globulin Ratio 1.1 (1-2) Ethyl Alcohol 0.00 (0.00) gm% SARS-CoV-2 RNA (ALAYNA) Negative (NEGATIVE) 11/11/20 11/11/20 Range/Units 05:52 05:52 WBC 5.46 (4.23-9.07) K/mm3 RBC 5.02 (4.63-6.08) M/mm3 Hgb 14.9 (13.7-17.5) gm/dl Hct 46.1 (40.1-51.0) % MCV 91.8 (79.0-92.2) fl MCH 29.7 (25.7-32.2) pg MCHC 32.3 (32.2-35.5) g/dl RDW Std Deviation 49.9 H (35.1-43.9) fL Plt Count 240 (163-337) K/mm3 MPV 9.6 (9.4-12.3) fl Neut % (Auto) 62.5 (34.0-67.9) % Lymph % (Auto) 27.7 (21.8-53.1) % [place] % (Auto) 6.8 (5.3-12.2) % Eos % (Auto) 2.4 (0.8-7.0) Baso % (Auto) 0.4 (0.1-1.2) % Neut # (Auto) 3.42 (1.78-5.38) K/mm3 Lymph # (Auto) 1.51 (1.32-3.57) K/mm3 [place] # (Auto) 0.37 (0.30-0.82) K/mm3 Eos # (Auto) 0.13 (0.04-0.54) K/mm3 Baso # (Auto) 0.02 (0.01-0.08) K/mm3 Sodium 144 (136-145) mEq/L Potassium 3.3 L (3.5-5.1) mEq/L Chloride 107 (98-107) mEq/L Carbon Dioxide 23 (21-32) mEq/L Anion Gap 17.3 H (5-15) BUN 8 (7-18) mg/dL Creatinine 1.0 (0.7-1.3) mg/dL Est Cr Clr Drug Dosing 127.87 mL/min Estimated GFR (MDRD) > 60 (>60) mL/min BUN/Creatinine Ratio 8.0 L (14-18) Glucose 92 (74-106) mg/dL Calcium 8.9 (8.5-10.1) mg/dL Phosphorus 3.3 (2.6-4.7) mg/dL Magnesium 2.1 (1.8-2.4) mg/dl Total Bilirubin 1.2 H (0.2-1.0) mg/dL AST 69 H (15-37) U/L ALT 92 H (16-63) U/L Alkaline Phosphatase 97 (46-116) U/L Total Protein 7.1 (6.4-8.2) g/dl Albumin 3.5 (3.4-5.0) g/dl Globulin 3.6 gm/dL Albumin/Globulin Ratio 1.0 (1-2) Ethyl Alcohol (0.00) gm% SARS-CoV-2 RNA (ALAYNA) (NEGATIVE) Med Orders - Current: Current Medications Chlordiazepoxide HCl (Librium) 50 mg PO Q4H [facility] Stop: 11/11/20 12:31 Last Admin: 11/11/20 08:30 Dose: 50 mg Documented by: Chlordiazepoxide HCl (Librium) 50 mg PO Q6H [facility] Stop: 11/12/20 10:31 Chlordiazepoxide HCl (Librium) 25 mg PO Q4H [facility] Stop: 11/13/20 12:31 Chlordiazepoxide HCl (Librium) 25 mg PO Q6H [facility] Stop: 11/14/20 10:31 Enoxaparin Sodium (Lovenox) 40 mg SUBCUT DAILY [facility] Last Admin: 11/11/20 08:31 Dose: 40 mg Documented by: Famotidine (Pepcid) 20 mg PO Q12H [facility] Last Admin: 11/11/20 08:30 Dose: 20 mg Documented by: Folic Acid (Folic Acid) 1 mg PO DAILY [facility] Stop: 11/12/20 09:01 Last Admin: 11/11/20 08:30 Dose: 1 mg Documented by: Dextrose/Sodium Chloride (Dextrose 5%-1/2 Ns) 1,000 mls @ 100 mls/hr IV ASDIRECTED [facility] Last Admin: 11/11/20 02:47 Dose: 100 mls/hr Documented by: Ketorolac Tromethamine (Toradol) 15 mg IVPUSH Q6H PRN PRN Reason: Abdominal Pain Last Admin: 11/11/20 06:09 Dose: 15 mg Documented by: Lactulose (Cephulac) 20 gm PO BID [facility] Last Admin: 11/10/20 20:37 Dose: Not Given Documented by: Lorazepam (Ativan) 0 mg IV ASDIRECTED PRN; Protocol PRN Reason: Withdrawal Symptoms Last Admin: 11/10/20 20:57 Dose: 1 mg Documented by: Lorazepam (Ativan) 0 mg PO ASDIRECTED PRN; Protocol PRN Reason: Withdrawal Symptoms Paroxetine HCl (Paxil) 20 mg PO DAILY [facility] Last Admin: 11/11/20 08:30 Dose: 20 mg Documented by: Sodium Chloride (Saline Flush) 10 ml FLUSH ASDIRECTED PRN PRN Reason: Keep Vein Open Last Admin: 11/10/20 11:04 Dose: 10 ml Documented by: Thiamine HCl (Vitamin B-1) 100 mg PO DAILY [facility] Last Admin: 11/11/20 08:30 Dose: 100 mg Documented by: Discontinued Medications Chlordiazepoxide HCl (Librium) 50 mg PO ONETIME ONE Stop: 11/10/20 12:42 Last Admin: 11/10/20 13:15 Dose: 50 mg Documented by: Lactated Ringer's (Ringers, Lactated) 1,000 mls @ 500 mls/hr IV .BOLUS [facility] Last Admin: 11/10/20 11:03 Dose: 500 mls/hr Documented by: Metoprolol Tartrate 5 mg/ (Sodium Chloride) 55 mls @ 100 mls/hr IV ONETIME ONE Stop: 11/10/20 12:37 Last Admin: 11/10/20 12:17 Dose: Not Given Documented by: Lactated Ringer's (Ringers, Lactated) 1,000 mls @ 150 mls/hr IV ASDIRECTED [facility] Last Admin: 11/10/20 13:14 Dose: 150 mls/hr Documented by: Thiamine HCl 100 mg/ Sodium (Chloride) 51 mls @ 100 mls/hr IV ONETIME ONE Stop: 11/10/20 16:13 Last Admin: 11/10/20 17:20 Dose: Not Given Documented by: Lorazepam (Ativan) 1 mg IVPUSH ONETIME ONE Stop: 11/10/20 10:53 Last Admin: 11/10/20 11:04 Dose: 1 mg Documented by: Lorazepam (Ativan) 1 mg IVPUSH ONETIME ONE Stop: 11/10/20 12:06 Last Admin: 11/10/20 12:22 Dose: 1 mg Documented by: Metoprolol Tartrate (Lopressor) 5 mg IVPUSH ONETIME ONE Stop: 11/10/20 12:16 Last Admin: 11/10/20 12:23 Dose: 5 mg Documented by: Metoprolol Tartrate (Lopressor) 25 mg PO ONETIME ONE Stop: 11/10/20 12:39 Last Admin: 11/10/20 13:15 Dose: 25 mg Documented by: Multivitamins (Thera) 1 each PO ONETIME ONE Stop: 11/10/20 15:44 Last Admin: 11/10/20 16:38 Dose: 1 each Documented by: Thiamine HCl (Vitamin B-1) 100 mg IVPUSH ONETIME ONE Stop: 11/10/20 16:32 Last Admin: 11/10/20 16:38 Dose: 100 mg Documented by: - Exam Quality Assessment: DVT Prophylaxis. No: Supplemental Oxygen General: Alert, Oriented, Cooperative, No Acute Distress HEENT: Pupils Equal, Pupils Reactive, EOMI. No: Mucous Membr. Moist/[place] (Dry) Neck: Supple, Trachea Midline Lungs: Clear to Auscultation, Normal Respiratory Effort Cardiovascular: Regular Rate, Tachycardia GI/Abdominal Exam: Normal Bowel Sounds, Soft, No Distention, Tender (Right upper quadrant). No: Guarding, Rigid, Rebound (Male) Exam: Deferred Back Exam: Normal Inspection, Full Range of Motion Extremities: Normal Inspection, No Pedal Edema Skin: Warm, Intact, Moist Neurological: No New Focal Deficit Psy/Mental Status: Alert, Normal Affect, Normal Mood Sepsis Event Note - Evaluation Sepsis Screening Result: No Definite Risk - Focused Exam Vital Signs: Vital Signs Temp Resp BP Pulse Ox 11/11/20 08:00 36.7 C 16 129/73 95 11/11/20 06:00 23 H 93 L 11/11/20 05:00 17 95 11/11/20 04:00 36.6 C 16 136/89 94 L 11/11/20 03:00 98 11/11/20 02:00 11 L 95 11/11/20 01:00 14 94 L 11/11/20 00:00 36.6 C 16 137/79 91 L 11/10/20 23:00 17 90 L - Problem List & Annotations (1) Alcohol withdrawal syndrome SNOMED Code(s): 168139178 Code(s): F10.239 - ALCOHOL DEPENDENCE WITH WITHDRAWAL, UNSPECIFIED Status: Acute Priority: High Current Visit: Yes Qualifiers: Complication of substance-induced condition: uncomplicated Qualified C ode(s): F10.230 - Alcohol dependence with withdrawal, uncomplicated (2) Alcoholism SNOMED Code(s): 0175330 Code(s): F10.20 - ALCOHOL DEPENDENCE, UNCOMPLICATED Status: Acute Priority: High Current Visit: Yes (3) Transaminitis SNOMED Code(s): 158578416, 655955376 Code(s): R74.01 - ELEVATION OF LEVELS OF LIVER TRANSAMINASE LEVELS Status: Acute Priority: Medium Current Visit: Yes (4) Hyperbilirubinemia SNOMED Code(s): 98799203 Code(s): E80.6 - OTHER DISORDERS OF BILIRUBIN METABOLISM Status: Acute Priority: Medium Current Visit: Yes - Problem List Review Problem List Initiated/Reviewed/Updated: Yes - Assessment Assessment:: The patient is a 30-year-old gentleman who is currently in the intensive care unit due to acute alcohol withdrawal symptoms. The patient is on thiamine and folate as well as Librium and these will be continued. He also has transaminitis this is likely secondary to his alcohol consumption. Repeat laboratory studies have been ordered for the morning. His liver enzymes are improving slowly. The patient will have the metabolic panel and his electrolytes will be replaced as necessary. He has been encouraged to ambulate. The patient also has significant pain in his right upper quadrant and gallstones are not excluded at this point. I have ordered an ultrasound of his right upper quadrant. We will follow with this. Continue diet as tolerated. The patient does not have good social support structure for continued sobriety. I am concerned that without intensive inpatient treatment of the patient's likelihood for continued sobriety are poor at this time. - Plan Plan:: Assessment 30-year-old male with history of alcoholism of 1 quart of Jose Antonio Muñoz a day over the last few weeks and heavy drinking for many years returns to the emergency department for alcohol detox. * Alcohol withdrawal syndrome -currently on CIWA protocol with Librium scheduled and Ativan as needed. Patient has a history of alcohol withdrawal seizures, unwitnessed, and 1 episode of intubation reportedly by patient, but he does not know how long ago. * Elevated liver enzymes - AST 106, ALT 127, total bilirubin 1.3, albumin 4.0, INR not available * elevated ammonia level - Ammonia level on November 09, 2020 was 97. Started on lactulose * Elevated blood pressure without diagnosis of hypertensionlikely secondary to alcohol withdrawal Plan * Admit to ICU for alcohol detox * Librium protocol * Ativan IV/p.o. for elevated CIWA's * Folic acid, thiamine replacement * Monitor blood pressure but do not necessarily treat unless systolic blood pressure is greater than 180, diastolic blood pressure greater than 105 * Follow CBC, CMP * Pepcid 20 mg twice daily * Continue lactulose. * Patient appears to have been started on Paxil while at [facility] so we will continue it. * VTE prophylaxis with Lovenox. * CODE STATUS: Full code
[2020-11-11] MEDS ORDERED: Enoxaparin 40 MG/0.4 ML Syringe SUBCUT SCH (09:00)
[2020-11-11] MEDS: Lactulose Soln 10 GM/15 ML 30 ML UD Cup PO SCH ×2 (09:00→20:32)
[2020-11-11] MEDS ORDERED: PARoxetine 20 MG Tab PO SCH (09:00)
[2020-11-11] MEDS ORDERED: Thiamine 100 MG Tab PO SCH (09:00)
[2020-11-11] MEDS: LORazepam 2 MG/ML SDV IV PRN ×5 (09:27→22:59)
--- NOTE | 2020-11-11 13:29 | US ---
Limited abdominal ultrasound: Multiple real-time images were obtained of the upper right abdomen. Comparison: Previous CT abdomen and pelvis study of 02/26/17. Technologist's note: Entire exam obscured by bowel gas. Findings: Images through the ribs show no discrete abnormality within the liver. Prior cholecystectomy is noted. No definite biliary duct dilatation is appreciated. Right kidney shows no hydronephrosis or mass. Right kidney has a length of 10.6 cm. Pancreas is not well seen. The small portion of the visualized pancreas shows no discrete abnormality. Main portal vein shows normal hepatopedal flow. Impression: 1. Previous cholecystectomy. 2. No additional abnormality is definitely appreciated on right upper quadrant abdominal ultrasound. Diagnostic code #2
[2020-11-12] MEDS: chlordiazePOXIDE 25 MG Cap PO SCH (03:32)
[2020-11-12] MEDS: LORazepam 2 MG/ML SDV IV PRN ×2 (03:32→04:59)
[2020-11-12 04:08] VITALS: BP 100/89
--- NOTE | 2020-11-12 07:02 | PCM.DCSUM1 ---
Discharge Summary - Hospital Course HPI Initial Comments: The patient was admitted secondary to impending withdrawal symptoms from acute alcohol intoxication. Diagnosis: Stroke: No - Discharge Data Discharge Date: 11/12/20 Discharge Disposition: Against Medical Advice 07 Condition: Fair - Referral to Home Health Primary Care Physician: PCP Not In Area - Discharge Diagnosis/Problem(s) (1) Alcohol withdrawal syndrome SNOMED Code(s): 321840245 ICD Code: F10.239 - ALCOHOL DEPENDENCE WITH WITHDRAWAL, UNSPECIFIED Status: Acute Priority: High Qualifiers: Complication of substance-induced condition: uncomplicated Qualified Code(s): F10.230 - Alcohol dependence with withdrawal, uncomplicated (2) Alcoholism SNOMED Code(s): 1477358 ICD Code: F10.20 - ALCOHOL DEPENDENCE, UNCOMPLICATED Status: Acute Priority: High (3) Transaminitis SNOMED Code(s): 860543009, 352766933 ICD Code: R74.01 - ELEVATION OF LEVELS OF LIVER TRANSAMINASE LEVELS Status: Acute Priority: Medium (4) Hyperbilirubinemia SNOMED Code(s): 95237720 ICD Code: E80.6 - OTHER DISORDERS OF BILIRUBIN METABOLISM Status: Acute Priority: Medium - Patient Summary/Data Consults: Consultations 11/10/20 15:43 Consult to Case Management/[employer] [CONS] Routine Hospital Course: The patient is a 30-year-old gentleman who had presented to the emergency depart ment on November 09, 2020 with acute alcohol intoxication. The patient was transferred to treatment center and promptly returned for admission on November 10, 2020 due to impending alcohol withdrawals. The patient was then admitted and he was placed in ICU status and placed on CIWA protocol. The patient had been placed on Librium along with Ativan to help with anxiety and possible seizures. The patient had reported that he had difficulty with seizures as well as hallucinations when stopping alcohol. The patient does not have a good social support structure to help assist with his sobriety nor does he have a plan. The patient reported that while he was in [place] recently he did reportedly maintain sobriety for approximately 4 months. The patient also had been previously in inpatient rehabilitation. The patient continue to improve with the use of Ativan and Librium. Arrangements were made for the patient to likely go to short-term rehabilitation followed by long-term rehabilitation and an [place] program. Because of the patient's history and poor social support I feel that the patient's prospects for continued sobriety are poor. I had recommended intensive inpatient rehabilitation. The patient decided to sign out AGAINST MEDICAL ADVICE and left acute hospitalization at approximately 06November 12, 2020. - Discharge Plan Home Medications: Home Meds LORazepam [Ativan] 1 mg PO ASDIRECTED #18 tab 11/09/20 [Rx] Lactulose [Cephulac] 20 gm PO BID 30 Days #60 cup 11/09/20 [Rx] Ondansetron [Zofran ODT] 4 mg PO Q8H 3 Days #9 tab.dis 11/09/20 [Rx] PARoxetine HCL [Paroxetine HCl] 20 mg PO DAILY 11/09/20 [History] amLODIPine [Norvasc] 5 mg PO DAILY 11/09/20 [History] Forms: ED Department Discharge Referrals: PCP,Not In Area [Primary Care Provider] - - Discharge Summary/Plan Comment DC Time >30 min.: No - Patient Data Vitals - Most Recent: Last Vital Signs Temp 36.4 C 11/12/20 04:00 Pulse 100 11/10/20 14:35 Resp 14 11/12/20 04:00 BP 100/89 11/12/20 04:00 Pulse Ox 95 11/12/20 04:00 Weight - Most Recent: 120.541 kg I&O - Last 24 hours: Intake & Output 11/11/20 11/12/20 11/12/20 22:59 06:59 14:59 Intake Total 1015 1167 Output Total 400 Balance 615 1167 Med Orders - Current: Current Medications Chlordiazepoxide HCl (Librium) 50 mg PO Q6H [facility] Stop: 11/12/20 10:31 Last Admin: 11/12/20 03:32 Dose: 50 mg Documented by: Chlordiazepoxide HCl (Librium) 25 mg PO Q4H [facility] Stop: 11/13/20 12:31 Chlordiazepoxide HCl (Librium) 25 mg PO Q6H [facility] Stop: 11/14/20 10:31 Enoxaparin Sodium (Lovenox) 40 mg SUBCUT DAILY [facility] Last Admin: 11/11/20 08:31 Dose: 40 mg Documented by: Famotidine (Pepcid) 20 mg PO Q12H [facility] Last Admin: 11/11/20 21:30 Dose: 20 mg Documented by: Folic Acid (Folic Acid) 1 mg PO DAILY [facility] Stop: 11/12/20 09:01 Last Admin: 11/11/20 08:30 Dose: 1 mg Documented by: Dextrose/Sodium Chloride (Dextrose 5%-1/2 Ns) 1,000 mls @ 100 mls/hr IV ASDIRECTED [facility] Last Admin: 11/11/20 21:29 Dose: 100 mls/hr Documented by: Ketorolac Tromethamine (Toradol) 15 mg IVPUSH Q6H PRN PRN Reason: Abdominal Pain Last Admin: 11/11/20 22:59 Dose: 15 mg Documented by: Lactulose (Cephulac) 20 gm PO BID [facility] Last Admin: 11/11/20 20:32 Dose: Not Given Documented by: Lorazepam (Ativan) 0 mg IV ASDIRECTED PRN; Protocol PRN Reason: Withdrawal Symptoms Last Admin: 11/12/20 04:59 Dose: 2 mg Documented by: Lorazepam (Ativan) 0 mg PO ASDIRECTED PRN; Protocol PRN Reason: Withdrawal Symptoms Paroxetine HCl (Paxil) 20 mg PO DAILY [facility] Last Admin: 11/11/20 08:30 Dose: 20 mg Documented by: Sodium Chloride (Saline Flush) 10 ml FLUSH ASDIRECTED PRN PRN Reason: Keep Vein Open Last Admin: 11/10/20 11:04 Dose: 10 ml Documented by: Thiamine HCl (Vitamin B-1) 100 mg PO DAILY [facility] Last Admin: 11/11/20 08:30 Dose: 100 mg Documented by: Discontinued Medications Chlordiazepoxide HCl (Librium) 50 mg PO ONETIME ONE Stop: 11/10/20 12:42 Last Admin: 11/10/20 13:15 Dose: 50 mg Documented by: Chlordiazepoxide HCl (Librium) 50 mg PO Q4H [facility] Stop: 11/11/20 12:31 Last Admin: 11/11/20 11:51 Dose: 50 mg Documented by: Lactated Ringer's (Ringers, Lactated) 1,000 mls @ 500 mls/hr IV .BOLUS [facility] Last Admin: 11/10/20 11:03 Dose: 500 mls/hr Documented by: Metoprolol Tartrate 5 mg/ (Sodium Chloride) 55 mls @ 100 mls/hr IV ONETIME ONE Stop: 11/10/20 12:37 Last Admin: 11/10/20 12:17 Dose: Not Given Documented by: Lactated Ringer's (Ringers, Lactated) 1,000 mls @ 150 mls/hr IV ASDIRECTED [facility] Last Admin: 11/10/20 13:14 Dose: 150 mls/hr Documented by: Thiamine HCl 100 mg/ Sodium (Chloride) 51 mls @ 100 mls/hr IV ONETIME ONE Stop: 11/10/20 16:13 Last Admin: 11/10/20 17:20 Dose: Not Given Documented by: Lorazepam (Ativan) 1 mg IVPUSH ONETIME ONE Stop: 11/10/20 10:53 Last Admin: 11/10/20 11:04 Dose: 1 mg Documented by: Lorazepam (Ativan) 1 mg IVPUSH ONETIME ONE Stop: 11/10/20 12:06 Last Admin: 11/10/20 12:22 Dose: 1 mg Documented by: Metoprolol Tartrate (Lopressor) 5 mg IVPUSH ONETIME ONE Stop: 11/10/20 12:16 Last Admin: 11/10/20 12:23 Dose: 5 mg Documented by: Metoprolol Tartrate (Lopressor) 25 mg PO ONETIME ONE Stop: 11/10/20 12:39 Last Admin: 11/10/20 13:15 Dose: 25 mg Documented by: Multivitamins (Thera) 1 each PO ONETIME ONE Stop: 11/10/20 15:44 Last Admin: 11/10/20 16:38 Dose: 1 each Documented by: Thiamine HCl (Vitamin B-1) 100 mg IVPUSH ONETIME ONE Stop: 11/10/20 16:32 Last Admin: 11/10/20 16:38 Dose: 100 mg Documented by:
[2020-11-12] MEDS ORDERED: chlordiazePOXIDE 25 MG Cap PO SCH (16:30)
[2020-11-13] MEDS ORDERED: chlordiazePOXIDE 25 MG Cap PO SCH (16:30)
== END 2020-11-12 07:06 | disposition left against medical advice (07) | DRG 894 ==
LOC: JD.ED 10:34 → JD.ICU 13:07
PROVIDERS: ADMIT Family Medicine; ATTEND Family Medicine
DX: F10.230 Alcohol dependence with withdrawal, uncomplicated (principal); R74.01 Elevation of levels of liver transaminase levels; E80.6 Other disorders of bilirubin metabolism; F41.9 Anxiety disorder, unspecified; Z79.899 Other long term (current) drug therapy; Z91.013 Allergy to seafood; I10 Essential (primary) hypertension; F32.9 Major depressive disorder, single episode, unspecified; Z90.49 Acquired absence of other specified parts of digestive tract; Z20.822 Contact with and (suspected) exposure to COVID-19
CPT/HCPCS: 36415; 76705; 76705-26; 80053; 80179; 83735; 84100; 85025; 96374; 96375; 96376; 99221; 99232; 99238; 99284; 99285-25; A9270-GY; J1650; J1885; J2060; J3411; J3490; J7042; J7120; U0002